=== PATIENT | male | born 1985 | race African-American/Black ===

== ENCOUNTER 2017-02-16 02:59 | Emergency (ER) | payer SELFPAY ==
[~2017-02-16 02:59] MED LIST: SERO25TA PO; VALP250C PO; VALP250UDC PO
[2017-02-16] MEDS ORDERED: TYLE325T PO (03:06)
[2017-02-16 03:08] VITALS: BP 153/99; PULSE 86; RESP 20; TEMP 98; O2SAT 94
[2017-02-16] MEDS ORDERED: ALBU.5I NEB (03:13)
[2017-02-16 03:41] VITALS: BP 135/85; PULSE 78; RESP 20; TEMP 98; O2SAT 94
[2017-02-16] MEDS ORDERED: KETOROLAC TROMETHAMINE 60 MG/2 ML (IM) VIAL IM ONE (04:00)
[2017-02-16] MEDS ORDERED: RESP: ALBUTEROL 2.5 MG/IPRATROPIUM 0.5 MG NEB (SCH) NEB ONE (04:00)
[2017-02-16 04:03] VITALS: O2SAT 97
[2017-02-16 04:15] VITALS: BP 136/83; PULSE 78; RESP 18; O2SAT 96
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
[2017-02-16 05:59] VITALS: BP 152/76
--- NOTE | 2017-02-16 12:15 | EKG ---
Date Performed: 02/16/2017 Time Performed: 03:52:15 PTAGE: 32 years EKG: Sinus rhythm LEFT VENTRICULAR HYPERTROPHY AND ST-T CHANGE Early repolarization, consider percarditis ABNORMAL ECG PREVIOUS TRACING : 09/07/2004 05.01 DOCTOR: Gary Tsai Interpretating Date/Time 02/16/2017 12:13:56
== END 2017-02-16 06:10 | disposition home or self-care (01) ==
LOC: NEPD 02:59 → NEPC 06:10
DX: M54.9 Dorsalgia, unspecified (principal); J45.909 Unspecified asthma, uncomplicated; I51.7 Cardiomegaly; R94.31 Abnormal electrocardiogram [ECG] [EKG]; R62.50 Unspecified lack of expected normal physiological development in childhood; F41.9 Anxiety disorder, unspecified; E11.9 Type 2 diabetes mellitus without complications; I10 Essential (primary) hypertension; R56.9 Unspecified convulsions
CPT/HCPCS: 93005; 94664; 96372; 99284; J1885

== ENCOUNTER 2017-03-16 03:24 | Inpatient (IN) | payer SELFPAY ==
[2017-03-16] VITALS (11 sets, daily range): BP systolic 124–149; BP diastolic 71–88; PULSE 61–78; RESP 14–22; TEMP 97.3–98.7; O2SAT 96–100
[~2017-03-16] VITALS: Ht 182.9 cm; Wt 117.0 kg
[~2017-03-16 03:24] MED LIST changes: +ALBU.5I NEB; -SERO25TA PO; +TYLE325T PO; -VALP250C PO; -VALP250UDC PO
[2017-03-16] MEDS ORDERED: SODIUM CHLOR 0.9% 1000 ML INJ 1,000 ML IV SCH ×2 (03:45→06:15)
[2017-03-16] MEDS ORDERED: ASPIRIN 81 MG CHEW TAB PO ONE (03:45)
[2017-03-16] MEDS ORDERED: SODIUM CHLORIDE 0.9% FLUSH 10 ML FLUSH IVF PRN (03:45)
[2017-03-16] MEDS ORDERED: NITROGLYCERIN 0.4 MG SL 25 TABS/BTL SL ONE (03:45)
[2017-03-16 04:02] LABS: AUTOMATED NEUTROPHIL # 4.1 TH/MM3 (1.8-7.7); BASOPHIL # 0.1 TH/MM3 (0-0.2); BASOPHIL % 0.7 % (0.0-2.0); EOSINOPHIL # 0.4 TH/MM3 (0-0.4); EOSINOPHIL % 5.7 % (0.0-4.0); HEMATOCRIT 47.4 % (39.0-51.0); HEMO FLAGS DIFF FINAL; LYMPHOCYTE # 1.8 TH/MM3 (1.0-4.8); MEAN CORPUSCULAR HEMOGLOBIN 28.4 PG (27.0-34.0); MEAN CORPUSCULAR HGB CONC 32.6 % (32.0-36.0); MONO % 8.5 % (0.0-8.0); NEUT % 59.1 % (16.0-70.0); PLATELET COUNT 245 TH/MM3 (150-450); RED BLOOD COUNT 5.45 MIL/MM3 (4.50-5.90); RED CELL DISTRIBUTION WIDTH 13.6 % (11.6-17.2); WHITE BLOOD COUNT 6.9 TH/MM3 (4.0-11.0)
[2017-03-16 04:20] LABS: APTT (PATIENT) 27.6 SEC (24.3-30.1); PROTHROMBIN TIME - PATIENT 10.2 SEC (9.8-11.6)
--- NOTE | 2017-03-16 04:23 | RADRPT ---
EXAM DATE/TIME: 03/16/2017 03:54 [facility] COMPARISON: CHEST SINGLE AP, April 01, 2010, 10:39. INDICATIONS : Chest pain. MEDICAL HISTORY : Unobtainable. SURGICAL HISTORY : Unobtainable. ENCOUNTER: Initial ACUITY: 2 days PAIN SCORE: 10/10 LOCATION: Bilateral chest FINDINGS: Portable AP view of the chest demonstrates a normal-sized cardiac silhouette. No effusion, consolidat ion, or pneumothorax is visualized. The bones and soft tissues demonstrate no acute abnormality. Lung s are underinflated. MOLD BREAKER shunt overlies the right chest. CONCLUSION: No acute cardiopulmonary abnormality is identified. Erick Reveles MD on March 16, 2017 at 4:21 Board Certified Radiologist. This report was verified electronically.
[2017-03-16 04:24] LABS: ANION GAP 6 MEQ/L (5-15); BICARBONATE 29.5 MEQ/L (21.0-32.0); BLOOD UREA NITROGEN 14 MG/DL (7-18); CHLORIDE 103 MEQ/L (98-107); GLOMERULAR FILTRATION RATE 87 ML/MIN (>89); MAGNESIUM 2.3 MG/DL (1.5-2.5); POTASSIUM 3.5 MEQ/L (3.5-5.1); SODIUM (NA) 138 MEQ/L (136-145)
[2017-03-16] MEDS ORDERED: KETOROLAC TROMETHAMINE 30 MG/ML (IVP) VIAL IV PUSH ONE (04:30)
[2017-03-16 04:37] LABS: CREATINE KINASE 1153 U/L (39-308)
[2017-03-16 04:50] LABS: CKMB 6.4 NG/ML (0.5-3.6)
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
--- NOTE | 2017-03-16 06:04 | RADRPT ---
EXAM DATE/TIME: 03/16/2017 05:52 [facility] COMPARISON: CT BRAIN W/O CONTRAST, June 20, 2015, 10:02. INDICATIONS : Dizziness. RADIATION DOSE: 41.74 CTDIvol (mGy) MEDICAL HISTORY : Hypertension. SURGICAL HISTORY : Shunt. ENCOUNTER: Initial ACUITY: 2 days PAIN SCALE: 0/10 LOCATION: cranial TECHNIQUE: Multiple contiguous axial images were obtained of the head. Using automated exposure control and adj ustment of the mA and/or kV according to patient size, radiation dose was kept as low as reasonably a chievable to obtain optimal diagnostic quality images. DICOM format image data is available electro nically for review and comparison. FINDINGS: CEREBRUM: Right frontal SUPERVISOR LOCOMOTIVE shunt is present with distal tip in the right frontal horn. Ventricles are stable in size. There is mild expected dilatation of the left lateral ventricle secondary to the left-sided en cephalomalacia involving the frontal, parietal, and temporal lobes. No midline shift, mass lesion, h emorrhage or acute infarction. No extra-axial fluid collections are seen. POSTERIOR FOSSA: The cerebellum and brainstem are intact. The 4th ventricle is midline. The cerebellopontine angle i s unremarkable. EXTRACRANIAL: Sinuses demonstrate no acute finding. There is a left maxillary mucous retention cyst measuring 18 mm . SKULL: The calvaria is intact. No evidence of skull fracture. CONCLUSION: 1. Stable noncontrast head CT. No acute intracranial abnormality is identified. 2. Right frontal SUPERVISOR LOCOMOTIVE shunt is in unchanged position and ventricles are stable in size. 3. 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 Erick Reveles MD on March 16, 2017 at 5:59 Board Certified Radiologist. This report was verified electronically.
[2017-03-16] MEDS: SODIUM CHLOR 0.9% 1000 ML INJ 1,000 ML IV SCH (06:40)
[2017-03-16] MEDS ORDERED: MAGNESIUM HYDROXIDE SUSP 30 ML CUP PO PRN (06:45)
[2017-03-16] MEDS ORDERED: SODIUM CHLORIDE 0.9% FLUSH 10 ML FLUSH IV FLUSH PRN (06:45)
[2017-03-16] MEDS ORDERED: LACTULOSE SYRUP 20 GM/30 ML CUP PO PRN (06:45)
[2017-03-16] MEDS ORDERED: MORPHINE SULFATE 4 MG/ML INJ IV PUSH PRN (06:45)
[2017-03-16] MEDS ORDERED: BISACODYL 10 MG SUPP RECTAL PRN (06:45)
[2017-03-16] MEDS ORDERED: SENNOSIDES 8.6 MG TAB PO PRN (06:45)
[2017-03-16] MEDS ORDERED: ACETAMINOPHEN 325 MG TAB PO PRN (06:45)
[2017-03-16] MEDS ORDERED: ONDANSETRON HCL 4 MG/2 ML VIAL IVP PRN (06:45)
[2017-03-16] MEDS: SODIUM CHLORIDE 0.9% FLUSH 10 ML FLUSH IV FLUSH SCH ×2 (09:00→21:00)
[2017-03-16] MEDS: DOCUSATE SODIUM 50 MG/SENNA 8.6 MG TAB PO SCH ×2 (09:00→23:18)
--- NOTE | 2017-03-16 10:29 | HHI.HP ---
[facility] No Primary Care Physician Admission Diagnosis chest wall pain; elevated ck r/o rhabdomyolysis Diagnoses: (1) Atypical chest pain Diagnosis: Principal (2) Tobacco abuse Diagnosis: Secondary Chief Complaint: Chest pain Travel History International Travel<30 Days: No Contact w/Intl Traveler <30 Da: No Traveled to Known Affected Are: No History of Present Illness Written by Wilder Mckenna, acting as scribe for Dr. Conteh on 03/16/17 at 10:53. 32-year-old male with a PMH of TBI, PAPER LATCHER shunt in place, mental retardation, seizure disorder, DM, asthma, tobacco and marijuana use. He presented to the ED via [facility] with complaints of chest pain. He states that the chest pain began two days ago, rates pain 10/10, agrees to pain being crushing, stabbing and burning, pain is constant, nonradiating. He denies diaphoresis, but endorses nausea with no vomiting yesterday. He denies any recent injury or trauma. He reports cough but unsure if it is productive, denies leg swelling, or SOB. Patient reports a history of seizures, but he has not been taking any of his medications, he is unaware of what pharmacy he uses. He repots being on Singular and Depakote, unsure of dose. His last reported seizure was "years ago ". At the moment there is no family present patient states that he lives at home with mother and his mother does not know he is in the hospital. An attempt was made to contact next of kin listed on EMR, however number was not correct. He does not have anyone else listed in chart to contact. Exam and history was limited due to patients past medical history of TBI and mental retardation. History was gathered from ER documentation, and past [facility] visits. Review of Systems Except as stated in HPI: all other systems reviewed are Neg Past Family Social History Past Medical History Limited due to patients mental capacity, gathered from patient and past [facility] visits Asthma TBI with PAPER LATCHER shunt in place Mental retardation Seizures Past Surgical History Limited due to patients mental capacity, gathered from patient and past [facility] visits PAPER LATCHER shunt after TBI ?left shoulder surgery ?abdominal surgery Reported Medications Reported Meds & Active Scripts Active Reported Albuterol Neb (Albuterol Sulfate) 2.5 Mg/0.5 Ml Neb 2.5 Mg NEB Q4HR NEB PRN Note: The Albuterol Sulfate Inhalation Solution is concentrated and must be diluted. Read complete instructions carefully before using. Tylenol (Acetaminophen) 325 Mg Tab 650 Mg PO Q4H PRN Allergies: Coded Allergies: penicillin G (Verified Allergy, Severe, 03/16/17) PT DID NOT MENTION ALLERGY TO PCN WHEN ASKED risperidone (Verified Allergy, Unknown, JUST DON'T LIKE IT; TASTES NASTY, 03/16/17) Active Ordered Medications Inpatient Medications Acetaminophen (Tylenol) 650 mg Q6H PRN PO PAIN SCALE 1 TO 2; Start 03/16/17 at 06:45 Acetaminophen/ Hydrocodone Bitart ([place] 5-325 Mg) 1 tab Q4H PRN PO PAIN SCALE 3 TO 5; Start 03/16/17 at 06:45 Aspirin (Aspirin Chew) 162 mg ONCE ONCE PO Last administered on 03/16/17 04: 05; Start 03/16/17 at 03:45; Stop 03/16/17 at 03:46; Status DC Bisacodyl (Dulcolax Supp) 10 mg DAILY PRN RECTAL SEVERE CONSITIPATION; Start 03/16/17 at 06:45 Ketorolac Tromethamine (Toradol Inj) 30 mg ONCE ONCE IV PUSH Last administered on 03/16/17 05:00; Start 03/16/17 at 04:30; Stop 03/16/17 at 04:31 ; Status DC Lactulose (Lactulose Liq) 30 ml DAILY PRN PO SEVERE CONSITIPATION; Start at 06:45 Magnesium Hydroxide (Milk Of Magnesia Liq) 30 ml Q12H PRN PO Mild constipation ; Start 03/16/17 at 06:45 Morphine Sulfate (Morphine Inj) 2 mg Q3H PRN IV PUSH PAIN 6-10; Start 03/16/17 at 06:45 Nitroglycerin (Nitrostat Sl) 0.4 mg ONCE ONCE SL Last administered on 04:05; Start 03/16/17 at 03:45; Stop 03/16/17 at 03:46; Status DC Ondansetron HCl (Zofran Inj) 4 mg Q6H PRN IVP NAUSEA OR VOMITING; Start at 06:45 Senna/Docusate Sodium (Geeta-Colace) 1 tab BID PO ; Start 03/16/17 at 09:00 Sennosides (Senokot) 17.2 mg Q12H PRN PO Moderate constipation; Start 03/16/17 at 06:45 Sodium Chloride (NS Flush) 2 ml BID IV FLUSH ; Start 03/16/17 at 09:00 Family History Mother: no history reported Father: , cancer unknown what kind Social History Lives with mother Tobacco use: smokes 1/2 PPD (per ED documentation) Alcohol use: denies any Illicit drug use: Marijuana, does not quantify amount Physical Exam Vital Signs Vital Signs Date Time Temp Pulse Resp B/P (MAP) Pulse Ox O2 Delivery O2 Flow Rate FiO2 03/16/17 07:58 97.3 64 18 147/71 (96) 100 03/16/17 07:44 03/16/17 06:52 78 14 133/88 (103) 99 Room Air 03/16/17 05:45 62 14 144/78 (100) 98 Room Air 03/16/17 04:30 64 14 140/82 (101) 99 Room Air 03/16/17 03:34 98.7 66 16 149/88 (108) 96 Room Air Physical Exam GENERAL: This is a well-nourished, -[place] male well-developed patient , in no apparent distress. SKIN: No rashes, ecchymoses or lesions. Cool and dry. HEAD: Atraumatic. Normocephalic. EYES: Pupils equal round and reactive. Extraocular motions intact. No scleral icterus. No injection or drainage. ENT: Nose without bleeding, purulent drainage or septal hematoma. Throat without erythema, tonsillar hypertrophy or exudate. Uvula midline. Airway patent. NECK: Trachea midline. No JVD or lymphadenopathy. CARDIOVASCULAR: Regular rate and rhythm without murmurs, gallops, or rubs. RESPIRATORY: Clear to auscultation. Breath sounds equal bilaterally. No wheezes , rales, or rhonchi. GASTROINTESTINAL: Abdomen soft, non-tender, nondistended. Visible abdominal scar. MUSCULOSKELETAL: Extremities without clubbing, cyanosis, or edema. No joint tenderness, effusion, or edema noted. Visible left shoulder scar. NEUROLOGICAL: Awake and alert. Motor and sensory grossly within normal limits. Speech is slow. Laboratory Laboratory Tests Test 03/16/17 03:45 White Blood Count 6.9 Red Blood Count 5.45 Hemoglobin 15.4 Hematocrit 47.4 Mean Corpuscular Volume 87.0 Mean Corpuscular Hemoglobin 28.4 Mean Corpuscular Hemoglobin Concent 32.6 Red Cell Distribution Width 13.6 Platelet Count 245 Mean Platelet Volume 8.0 Neutrophils (%) (Auto) 59.1 Lymphocytes (%) (Auto) 26.0 Monocytes (%) (Auto) 8.5 Eosinophils (%) (Auto) 5.7 Basophils (%) (Auto) 0.7 Neutrophils # (Auto) 4.1 Lymphocytes # (Auto) 1.8 Monocytes # (Auto) 0.6 Eosinophils # (Auto) 0.4 Basophils # (Auto) 0.1 CBC Comment DIFF FINAL Differential Comment Prothrombin Time 10.2 Prothromb Time International Ratio 1.0 Activated Partial Thromboplast Time 27.6 Blood Urea Nitrogen 14 Creatinine 1.17 Random Glucose 82 Calcium Level 9.1 Magnesium Level 2.3 Sodium Level 138 Potassium Level 3.5 Chloride Level 103 Carbon Dioxide Level 29.5 Anion Gap 6 Estimat Glomerular Filtration Rate 87 Total Creatine Kinase 1153 Creatine Kinase MB 6.4 Creatine Kinase MB % 0.6 Troponin I LESS THAN 0.02 Result Diagram: 03/16/1734403/16/17344 Imaging Last Impressions Chest X-Ray 03/16/17341 Signed Impressions: Service Date/Time: Thursday, March 16, 2017 03:54 - CONCLUSION: No acute cardiopulmonary abnormality is identified. Erick Reveles MD Head CT 03/16/17 0000 Signed Impressions: Service Date/Time: Thursday, March 16, 2017 05:52 - CONCLUSION: 1. Stable noncontrast head CT. No acute intracranial abnormality is identified. 2. Right frontal PAPER LATCHER shunt is in unchanged position and ventricles are stable in size. 3. 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 MD Geronimo Zarco VTE Risk Assessment Geronimo VTE Risk Assessment: No/Low Risk (score <= 1) Caprini Risk Assessment Model Point Value = 1 Point Value = 2 Point Value = 3 Point Value = 5 Age 41-60 Minor surgery BMI > 25 kg/m2 Swollen legs Varicose veins or History of unexplained or recurrent spontaneous Oral contraceptives or hormone replacement Sepsis (< 1 month) Serious lung disease, including pneumonia (< 1 month) Abnormal pulmonary function Acute myocardial infarction Congestive heart failure (< 1 month) History of inflammatory bowel disease Medical patient at bed rest Age 61-74 Arthroscopic surgery Major open surgery (> 45 min) Laparoscopic surgery (> 45 min) Malignancy Confined to bed (> 72 hours) Immobilizing plaster cast Central venous access Age >= 75 History of VTE Family history of VTE Factor V Leiden Prothrombin [id number] Lupus anticoagulant Anticardiolipin antibodies Elevated serum homocysteine Heparin-induced thrombocytopenia Other congenital or acquired thrombophilia Stroke (< 1 month) Elective arthroplasty Hip, pelvis, or leg fracture Acute spinal cord injury (< 1 month) Prophylaxis Regimen Total Risk Factor Score Risk Level Prophylaxis Regimen 0-1 Low Early ambulation 2 Moderate Order ONE of the following: *Sequential Compression Device (SCD) *Heparin 5000 units SQ BID 3-4 Higher Order ONE of the following medications: *Heparin 5000 units SQ TID *Enoxaparin/Lovenox 40 mg SQ daily (WT < 150 kg, CrCl > 30 mL/min) *Enoxaparin/Lovenox 30 mg SQ daily (WT < 150 kg, CrCl > 10-29 mL/min) *Enoxaparin/Lovenox 30 mg SQ BID (WT < 150 kg, CrCl > 30 mL/min) AND/OR *Sequential Compression Device (SCD) 5 or more Highest Order ONE of the following medications: *Heparin 5000 units SQ TID (Preferred with Epidurals) *Enoxaparin/Lovenox 40 mg SQ daily (WT < 150 kg, CrCl > 30 mL/min) *Enoxaparin/Lovenox 30 mg SQ daily (WT < 150 kg, CrCl > 10-29 mL/min) *Enoxaparin/Lovenox 30 mg SQ BID (WT < 150 kg, CrCl > 30 mL/min) AND *Sequential Compression Device (SCD) Assessment and Plan Problem List: (1) Atypical chest pain ICD Code: R07.89 - Other chest pain (2) Tobacco abuse ICD Code: Z72.0 - Tobacco use Assessment and Plan 32-year-old male with a PMH of TBI, PAPER LATCHER shunt in place, mental retardation, seizure disorder, DM, asthma, tobacco and marijuana use. He presented to the ED via [facility] with complaints of chest pain. He states that the chest pain began two days ago, rates pain 10/10, agrees to pain being crushing, stabbing and burning, pain is constant, nonradiating. Atypical chest pain rule out ACS - Chest pain x2 days, first set of troponin <0.02, Ck-MC 6.4, total CK 1153, pending second set now - Initial EKG showing sinus bradycardia with occasional supraventricular premature complexes, left ventricular hypertrophy and ST-T changes. - Continue following serial troponin, recheck EKG to monitor for changes - If second troponin negative patient will undergo Irina scan - Toxicology screen ordered, patient has been positive in the past for cocaine on screen - IV Morphine PRN for pain. Seizure, none at the moment none recently reported - Patient unaware of the dose of his Depakote, has not been taking them for an unknown length of time - Seizure precautions for the moment, will consider resuming when an updated list of medications is brought in by family Asthma, not in exacerbation - Monitor for the moment, consider adding nebulizer treatments if needed - Oxygen saturation in the high 90's to 100 on room air. Tobacco and marijuana use - Counseled on cessation. TBI/mental retardation - supportive care for the moment, as this is chronic VTE - Low risk, SCD's and FATOU consueloe. This note was transcribed by kieran Mckenna. I, Dr. Gadiel Conteh personally performed the history, physical exam, and medical decision making; and confirmed the accuracy of the information in the transcribed note. Authenticated by Dr. Gadiel Conteh on 03/16/17 at 10:53. Code Status Full code Discussed Condition With Patient BalaInezjose SOLIMAN Mar 16, 2017 10:29 Gadiel Conteh MD Mar 16, 2017 10:30
[2017-03-16 11:22] LABS: CREATINE KINASE 775 U/L (39-308)
[2017-03-16] MEDS ORDERED: REGADENOSON INJ 0.4 MG/5 ML SYR ONE (12:55)
--- NOTE | 2017-03-16 14:10 | RADRPT ---
EXAM DATE/TIME: 03/16/2017 12:37 [place] COMPARISON: No previous studies available for comparison. INDICATIONS : Chest pain. Angina. DOSE: 30.2 mCi Tc99m Myoview at stress. 9.9 mCi Tc99m Myoview at rest. 0.4 mg Lexiscan STRESS SYMPTOMS: None noted. EJECTION FRACTION: 59% MEDICAL HISTORY : Hypertension. Diabetes mellitus type 2. Smoker. Asthma. SURGICAL HISTORY : None. ENCOUNTER: Initial ACUITY: 1 day PAIN SCALE: 4/10 LOCATION: chest TECHNIQUE: The patient underwent pharmacologic stress with infusion of prescribed dose. Continuous ECG tracing was monitored during stress. Gated SPECT imaging was performed after stress and conventional SPECT i maging was performed at rest. The examination was performed on a SPECT/CT scanner, both attenuation and non-corrected datasets were reviewed. FINDINGS: DISTRIBUTION: The maximum perfused segment at stress is in the lateral wall. PERFUSION STUDY: There is focal perfusion defect at stress in the anterior wall and to lesser degree in the mid inferi or wall. There is also overall mild chamber enlargement during stress. GATED STUDY: There is intact wall motion and thickening without hypokinetic or dyskinetic segments. CONCLUSION: 1. Mild stress-induced chamber enlargement concerning for triple vessel disease. 2. Focal ischemia in the anterior wall and less prominently in the mid inferior wall. 3. No focal wall motion abnormality with decreased ejection fraction of 59%. RISK CATEGORY: High (>3% Annual Mortality Rate) Nelson Thapa MD on March 16, 2017 at 14:03 Board Certified Radiologist. This report was verified electronically.
[2017-03-16] MEDS ORDERED: NITROGLYCERIN 0.4 MG SL 25 TABS/BTL SL PRN (14:45)
[2017-03-16] MEDS ORDERED: DEXTROSE 50% IN WATER 50 ML VIAL(D50) IV PUSH PRN (14:45)
[2017-03-16] MEDS ORDERED: GLUCAGON 1 MG/ML VIAL OTHER PRN (14:45)
--- NOTE | 2017-03-16 15:13 | HHI.PR ---
Addendum Remarks Add to A&P from today. Unstable angina - Nuclear stress test results showing Mild Stress-induced chamber enlargement concerning for triple vessel disease. Focal ischemia in the anterior wall less prominently in the mild inferior wall. No focal wall motion abnormality with decreased ejection fraction on 59%. - Start Heparin gtt, with loading dose. - Troponin X2 less than 0.02, total CK trending down - Patient with chest pain relieved with IV Morphine - Nitro patch scheduled. - Cardiology consult placed for evaluation - Diet: heart healthy, accu-checks for glycemic control - Check hemoglobin A1C, check lipid panel - Start PO statin. Start BB if UDS is negative for cocaine. - Admit to inpatient - Consult has been placed for case management to assist with locating family for possible cardiac intervention. Discussed with Dr. Conthe. Wilder Mckenna Mar 16, 2017 15:13
[2017-03-16] MEDS ORDERED: HEPARIN SODIUM - IV 10,000 UNITS/10 ML VIAL IV PUSH ONE (15:15)
[2017-03-16] MEDS ORDERED: HEPARIN-D5W 25,000 U/250 ML 250 ML IV PRN (15:30)
[2017-03-16] MEDS: NITROGLYCERIN 2% OINT 1 GM PACKET TOPICAL SCH ×2 (16:03→23:18)
--- NOTE | 2017-03-16 16:24 | PD.CONS ---
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 He presented to the ED via [facility] with complaints of chest pain. He states that the chest pain began two days ago, rates pain 10/10, agrees to pain being crushing, stabbing and burning, pain is constant, nonradiating. He denies diaphoresis, but endorses nausea with no vomiting yesterday. He denies any recent injury or trauma. He reports cough but unsure if it is productive, denies leg swelling, or SOB. Patient reports a history of seizures, but he has not been taking any of his medications, he is unaware of what pharmacy he uses. He repots being on Singular and Depakote, unsure of dose. Negative troponin. MPI concerning for 3 vessel CAD. Cardiology consulted for further management and evaluation. Review of Systems Consitutional: DENIES: Fatigue, Fever, Chills, Weight gain, Weight loss Eyes: DENIES: Amaurosis Fugax, Change in vision HEENT: DENIES: Lightheadedness, Change in hearing Respiratory: DENIES: See HPI, Cough, Snoring, Shortness of breath, Wheezing, Sputum production Cardiovascular: COMPLAINS OF: See HPI Gastrointestinal: DENIES: Nausea, Vomiting, Change in bowel habits, Reflux, Bloody stools, Melena Genitourinary: DENIES: Urinary incontinence, Difficulty voiding Integumentary: DENIES: Rash Neurologic: DENIES: Tingling or numbness, Memory problems, Poor Balance, Stroke symptoms Musculoskeletal: DENIES: Joint pain, Muscle pain, Limited range of motion, Back pain Psychiatric: DENIES: Anxiety, Depression, Sleep disturbances Hematologic: DENIES: Bruising tendencies, Bleeding tendencies Endocrine: DENIES: Weight gain, Weight loss, Thyroid disease Past Family Social History Allergies: Coded Allergies: penicillin G (Verified Allergy, Severe, 03/16/17) PT DID NOT MENTION ALLERGY TO PCN WHEN ASKED risperidone (Verified Allergy, Unknown, JUST DON'T LIKE IT; TASTES NASTY, 03/16/17) Past Medical History Limited due to patients mental capacity, gathered from patient and past [facility] visits Asthma TBI with PRIVATE INQUIRY AGENT shunt in place Mental retardation Seizures Past Surgical History Limited due to patients mental capacity, gathered from patient and past [facility] visits PRIVATE IN[employer]IRY AGENT shunt after TBI ?left shoulder surgery ?abdominal surgery Reported Medications Reported Meds & Active Scripts Active Reported Albuterol Neb (Albuterol Sulfate) 2.5 Mg/0.5 Ml Neb 2.5 Mg NEB Q4HR NEB PRN Note: The Albuterol Sulfate Inhalation Solution is concentrated and must be diluted. Read complete instructions carefully before using. Tylenol (Acetaminophen) 325 Mg Tab 650 Mg PO Q4H PRN Active Ordered Medications Current Medications Medications (Trade) Dose Ordered Sig/Hattie Route Start Time Stop Time Status Last Admin Sodium Chloride 1,000 ml @ 150 mls/hr Q6H40M IV 03/16/17 06:40 (NS Flush) 2 ml UNSCH PRN IV FLUSH 03/16/17 06:45 (NS Flush) 2 ml BID IV FLUSH 03/16/17 09:00 (Zofran Inj) 4 mg Q6H PRN IVP 03/16/17 06:45 03/16/17 11:04 (Tylenol) 650 mg Q6H PRN PO 03/16/17 06:45 ([place] 5-325 Mg) 1 tab Q4H PRN PO 03/16/17 06:45 (Morphine Inj) 2 mg Q3H PRN IV PUSH 03/16/17 06:45 03/16/17 11:05 (Geeta-Colace) 1 tab BID PO 03/16/17 09:00 (Milk Of Magnesia Liq) 30 ml Q12H PRN PO 03/16/17 06:45 (Senokot) 17.2 mg Q12H PRN PO 03/16/17 06:45 (Dulcolax Supp) 10 mg DAILY PRN RECTAL 03/16/17 06:45 (Lactulose Liq) 30 ml DAILY PRN PO 03/16/17 06:45 (D50w (Vial) Inj) 50 ml UNSCH PRN IV PUSH 03/16/17 14:45 (Glucagon Inj) 1 mg UNSCH PRN OTHER 03/16/17 14:45 (NovoLOG SUPPLEMENTAL SCALE) 1 ACHS SLIDING SCALE SQ 03/16/17 17:00 (Heparin Inj) 5,000 units UNSCH PRN IV PUSH 03/16/17 20:45 (Heparin Inj) 2,500 units UNSCH PRN IV PUSH 03/16/17 20:45 Heparin Sodium/ Dextrose 250 ml @ 10 mls/hr TITRATE PRN IV 03/16/17 15:30 (Lipitor) 40 mg HS PO 03/16/17 21:00 (Nitroglycerin 2% Oint) 1 inch Q6H TOPICAL 03/16/17 15:00 03/16/17 16:03 (Lopressor) 25 mg Q12HR PO 03/16/17 21:00 Physical Exam Vital Signs Vital Signs Date Time Temp Pulse Resp B/P (MAP) Pulse Ox O2 Delivery O2 Flow Rate FiO2 03/16/17 14:08 97.6 71 22 134/74 (94) 96 03/16/17 12:00 72 03/16/17 08:25 61 03/16/17 07:58 97.3 64 18 147/71 (96) 100 03/16/17 07:44 03/16/17 06:52 78 14 133/88 (103) 99 Room Air 03/16/17 05:45 62 14 144/78 (100) 98 Room Air 03/16/17 04:30 64 14 140/82 (101) 99 Room Air 03/16/17 03:34 98.7 66 16 149/88 (108) 96 Room Air Physical Exam GENERAL: Well-nourished, well-developed patient. SKIN: Warm and dry. HEAD: Normocephalic. EYES: No scleral icterus. No injection or drainage. NECK: Supple, trachea midline. No JVD or lymphadenopathy. CARDIOVASCULAR: Regular rate and rhythm without murmurs, gallops, or rubs. RESPIRATORY: Breath sounds equal bilaterally. No accessory muscle use. GASTROINTESTINAL: Abdomen soft, non-tender, nondistended. EXTREMITIES: No cyanosis, or edema. NEUROLOGICAL: Awake, alert, and oriented x 3. Non-focal. Laboratory Laboratory Tests Test 03/16/17 03:45 03/16/17 10:40 White Blood Count 6.9 Red Blood Count 5.45 Hemoglobin 15.4 Hematocrit 47.4 Mean Corpuscular Volume 87.0 Mean Corpuscular Hemoglobin 28.4 Mean Corpuscular Hemoglobin Concent 32.6 Red Cell Distribution Width 13.6 Platelet Count 245 Mean Platelet Volume 8.0 Neutrophils (%) (Auto) 59.1 Lymphocytes (%) (Auto) 26.0 Monocytes (%) (Auto) 8.5 Eosinophils (%) (Auto) 5.7 Basophils (%) (Auto) 0.7 Neutrophils # (Auto) 4.1 Lymphocytes # (Auto) 1.8 Monocytes # (Auto) 0.6 Eosinophils # (Auto) 0.4 Basophils # (Auto) 0.1 CBC Comment DIFF FINAL Differential Comment Prothrombin Time 10.2 Prothromb Time International Ratio 1.0 Activated Partial Thromboplast Time 27.6 Blood Urea Nitrogen 14 Creatinine 1.17 Random Glucose 82 Calcium Level 9.1 Magnesium Level 2.3 Sodium Level 138 Potassium Level 3.5 Chloride Level 103 Carbon Dioxide Level 29.5 Anion Gap 6 Estimat Glomerular Filtration Rate 87 Total Creatine Kinase 1153 775 Creatine Kinase MB 6.4 5.0 Creatine Kinase MB % 0.6 0.6 Troponin I LESS THAN 0.02 LESS THAN 0.02 Result Diagram: 03/16/1734403/16/17344 Imaging Last Impressions Chest X-Ray 03/16/17341 Signed Impressions: Service Date/Time: Thursday, March 16, 2017 03:54 - CONCLUSION: No acute cardiopulmonary abnormality is identified. Erick Reveles MD Myocardial Perfusion Scan Nuc Med 03/16/17 0000 Signed Impressions: Service Date/Time: Thursday, March 16, 2017 12:37 - CONCLUSION: 1. Mild stress-induced chamber enlargement concerning for triple vessel disease. 2. Focal ischemia in the anterior wall and less prominently in the mid inferior wall. 3. No focal wall motion abnormality with decreased ejection fraction of 59%%. RISK CATEGORY: High (>3%% Annual Mortality Rate) Nelson Thapa MD Head CT 03/16/17 0000 Signed Impressions: Service Date/Time: Thursday, March 16, 2017 05:52 - CONCLUSION: 1. Stable noncontrast head CT. No acute intracranial abnormality is identified. 2. Right frontal PR[employer] shunt is in unchanged position and ventricles are stable in size. 3. 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 Erick Reveles MD Assessment and Plan Problem List: (1) Atypical chest pain ICD Codes: R07.89 - Other chest pain Plan: 32 y/o M with atypical chest pain and high risk stress test. Currently chest pain free with No CV complaints. Reasonable to perform LHC to risk stratify CAD. Risk benefits of LHC +/- PCI explained to Mr. Porras, however HE DECLINES, he states he wants to go home. Of note for the MPI he consented for the test, thus I am assuming he is competent to make his own decision. Recommendations: 1. Continue aggressive management to CAD 2. Consult Case Management/Social Work Thank you for the opportunity to participate in the care of this patient Will be available on a PRN basis for any questions or concerns (2) Tobacco abuse ICD Codes: Z72.0 - Tobacco use Praful Randle MD Mar 16, 2017 16:24
[2017-03-16] MEDS: INSULIN ASPART SUPPLEMENTAL SCALE SQ SCH ×2 (17:00→21:00)
[2017-03-16 17:41] LABS: HEMATOCRIT 41.2 % (39.0-51.0); MEAN CELL VOLUME 87.5 FL (80.0-100.0); MEAN CORPUSCULAR HEMOGLOBIN 29.1 PG (27.0-34.0); MEAN CORPUSCULAR HGB CONC 33.3 % (32.0-36.0); PLATELET COUNT 179 TH/MM3 (150-450); RED BLOOD COUNT 4.71 MIL/MM3 (4.50-5.90); RED CELL DISTRIBUTION WIDTH 13.5 % (11.6-17.2); REVIEW FLAG FINAL; WHITE BLOOD COUNT 4.5 TH/MM3 (4.0-11.0)
[2017-03-16 17:59] LABS: APTT (PATIENT) 27.9 SEC (24.3-30.1); PROTHROMBIN TIME - PATIENT 10.1 SEC (9.8-11.6)
[2017-03-16 18:02] LABS: ALT (GPT) 29 U/L (12-78); AST (GOT) 23 U/L (15-37)
[2017-03-16 18:05] LABS: ALKALINE PHOSPHATASE 59 U/L (45-117); CREATINE KINASE 654 U/L (39-308); INDIRECT BILIRUBIN 0.4 MG/DL (0.0-0.8); TOTAL BILIRUBIN ADULT 0.5 MG/DL (0.2-1.0)
[2017-03-16] MEDS ORDERED: LORazepam 2 MG/ML VIAL IV PUSH PRN (19:30)
[2017-03-16] MEDS ORDERED: HEPARIN SODIUM - IV 10,000 UNITS/10 ML VIAL IV PUSH PRN ×2 (20:45)
[2017-03-16] MEDS: ACETAMINOPHEN/HYDROcodone 325 MG/5 MG TAB PO PRN ×2 (20:54→23:18)
[2017-03-16] MEDS: METOPROLOL TARTRATE 25 MG TAB PO SCH (21:00)
[2017-03-16] MEDS ORDERED: ATORVASTATIN 40 MG TAB PO SCH (21:00)
--- NOTE | 2017-03-16 22:17 | EKG ---
Date Performed: 03/16/2017 Time Performed: 03:32:43 PTAGE: 32 years EKG: SINUS BRADYCARDIA WITH OCCASIONAL SUPRAVENTRICULAR PREMATURE COMPLEXES LEFT VENTRICULAR HYP ERTROPHY AND ST-T CHANGE ABNORMAL ECG PREVIOUS TRACING : 02/16/2017 03.52 Compared to the previous tracing sinus bradycardia new DOCTOR: Portillo Jackson Interpretating Date/Time 03/16/2017 22:15:58
[2017-03-17] VITALS (17 sets, daily range): BP systolic 108–118; BP diastolic 56–83; PULSE 58–77; RESP 18–20; TEMP 97.8–98.2; O2SAT 96–98
[2017-03-17 03:38] LABS: AUTOMATED NEUTROPHIL # 1.9 TH/MM3 (1.8-7.7); BASOPHIL % 0.7 % (0.0-2.0); EOSINOPHIL # 0.4 TH/MM3 (0-0.4); EOSINOPHIL % 8.6 % (0.0-4.0); HEMATOCRIT 41.4 % (39.0-51.0); HEMO FLAGS DIFF FINAL; LYMPH % 36.5 % (9.0-44.0); LYMPHOCYTE # 1.5 TH/MM3 (1.0-4.8); MEAN CELL VOLUME 87.7 FL (80.0-100.0); MEAN CORPUSCULAR HEMOGLOBIN 28.9 PG (27.0-34.0); MONO % 9.4 % (0.0-8.0); NEUT % 44.8 % (16.0-70.0); PLATELET COUNT 183 TH/MM3 (150-450); RED BLOOD COUNT 4.72 MIL/MM3 (4.50-5.90); RED CELL DISTRIBUTION WIDTH 13.6 % (11.6-17.2); WHITE BLOOD COUNT 4.2 TH/MM3 (4.0-11.0)
[2017-03-17 03:48] LABS: APTT (PATIENT) 31.1 SEC (24.3-30.1)
[2017-03-17 03:59] LABS: ALT (GPT) 32 U/L (12-78); ANION GAP 5 MEQ/L (5-15); AST (GOT) 21 U/L (15-37); BICARBONATE 29.9 MEQ/L (21.0-32.0); BLOOD UREA NITROGEN 11 MG/DL (7-18); CHLORIDE 106 MEQ/L (98-107); GLOMERULAR FILTRATION RATE 109 ML/MIN (>89); POTASSIUM 3.9 MEQ/L (3.5-5.1); SODIUM (NA) 141 MEQ/L (136-145)
[2017-03-17 04:02] LABS: ALKALINE PHOSPHATASE 57 U/L (45-117); HDL CHOLESTEROL 40.2 MG/DL (40.0-60.0); LDL CHOLESTEROL 85 MG/DL (0-99); TOTAL BILIRUBIN ADULT 0.5 MG/DL (0.2-1.0)
[2017-03-17] MEDS: NITROGLYCERIN 2% OINT 1 GM PACKET TOPICAL SCH ×2 (05:04→09:00)
[2017-03-17] MEDS: SODIUM CHLOR 0.9% 1000 ML INJ 1,000 ML IV SCH ×2 (05:12→09:20)
[2017-03-17] MEDS: INSULIN ASPART SUPPLEMENTAL SCALE SQ SCH ×2 (08:00→12:00)
[2017-03-17] MEDS: DOCUSATE SODIUM 50 MG/SENNA 8.6 MG TAB PO SCH (09:00)
[2017-03-17] MEDS: METOPROLOL TARTRATE 25 MG TAB PO SCH (09:00)
[2017-03-17] MEDS: SODIUM CHLORIDE 0.9% FLUSH 10 ML FLUSH IV FLUSH SCH (09:00)
[2017-03-17 09:44] LABS: HEMOGLOBIN A1a 1.2 %; HEMOGLOBIN A1b 0.9 %; HEMOGLOBIN Ao 85.4 %; HEMOGLOBIN F 1.2 %; HEMOGLOBIN LA1C 1.9 %; HEMOGLOBIN P3 3.3 %
--- NOTE | 2017-03-17 09:53 | HHI.PR ---
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 He presented to the ED via [facility] with complaints of chest pain. He states that the chest pain began two days ago, rates pain 10/10, agrees to pain being crushing, stabbing and burning, pain is constant, nonradiating. He denies diaphoresis, but endorses nausea with no vomiting yesterday. He denies any recent injury or trauma. He reports cough but unsure if it is productive, denies leg swelling, or SOB. Patient reports a history of seizures, but he has not been taking any of his medications, he is unaware of what pharmacy he uses. He repots being on Singular and Depakote, unsure of dose. His last reported seizure was "years ago ". At the moment there is no family present patient states that he lives at home with mother and his mother does not know he is in the hospital. An attempt was made to contact next of kin listed on EMR, however number was not correct. He does not have anyone else listed in chart to contact. Exam and history was limited due to patients past medical history of TBI and mental retardation. History was gathered from ER documentation, and past [facility] visits. 11-4 patient refused cardiac cath urine drug screen positive for cocaine patient denies using cocaine if echo is stable will dc to home today no new complaints Objective Vitals Vital Signs Date Time Temp Pulse Resp B/P (MAP) Pulse Ox O2 Delivery O2 Flow Rate FiO2 03/17/17 06:00 65 03/17/17 05:00 60 03/17/17 04:59 98.2 64 20 108/56 (73) 96 03/17/17 04:00 58 03/17/17 03:00 58 03/17/17 02:00 62 03/17/17 01:00 65 03/17/17 00:00 62 03/16/17 23:00 61 03/16/17 22:00 98.2 61 22 124/84 (97) 96 03/16/17 22:00 72 03/16/17 16:10 73 03/16/17 14:08 97.6 71 22 134/74 (94) 96 03/16/17 12:00 72 I/O 12/3/03/16/17 03/16/17 03/17/17 03/17/17 03/17/17 07:00 15:00 23:00 07:00 15:00 23:00 Intake Total 225 ml 480 ml Output Total 475 ml Balance 225 ml 5 ml Intake Oral 480 ml IV Total 225 ml Output Urine Total 475 ml Result Diagram: 03/17/17 0327 03/17/17 0327 Other Results Laboratory Tests Test 03/16/17 03:45 03/16/17 10:40 03/16/17 17:09 03/16/17 21:00 White Blood Count 6.9 TH/MM3 4.5 TH/MM3 Red Blood Count 5.45 MIL/MM3 4.71 MIL/MM3 Hemoglobin 15.4 GM/DL 13.7 GM/DL Hematocrit 47.4 % 41.2 % Mean Corpuscular Volume 87.0 FL 87.5 FL Mean Corpuscular Hemoglobin 28.4 PG 29.1 PG Mean Corpuscular Hemoglobin Concent 32.6 % 33.3 % Red Cell Distribution Width 13.6 % 13.5 % Platelet Count 245 TH/MM3 179 TH/MM3 Mean Platelet Volume 8.0 FL 8.3 FL Neutrophils (%) (Auto) 59.1 % Lymphocytes (%) (Auto) 26.0 % Monocytes (%) (Auto) 8.5 % Eosinophils (%) (Auto) 5.7 % Basophils (%) (Auto) 0.7 % Neutrophils # (Auto) 4.1 TH/MM3 Lymphocytes # (Auto) 1.8 TH/MM3 Monocytes # (Auto) 0.6 TH/MM3 Eosinophils # (Auto) 0.4 TH/MM3 Basophils # (Auto) 0.1 TH/MM3 CBC Comment DIFF FINAL Differential Comment Prothrombin Time 10.2 SEC 10.1 SEC Prothromb Time International Ratio 1.0 RATIO 1.0 RATIO Activated Partial Thromboplast Time 27.6 SEC 27.9 SEC Blood Urea Nitrogen 14 MG/DL Creatinine 1.17 MG/DL Random Glucose 82 MG/DL Calcium Level 9.1 MG/DL Magnesium Level 2.3 MG/DL Sodium Level 138 MEQ/L Potassium Level 3.5 MEQ/L Chloride Level 103 MEQ/L Carbon Dioxide Level 29.5 MEQ/L Anion Gap 6 MEQ/L Estimat Glomerular Filtration Rate 87 ML/MIN Total Creatine Kinase 1153 U/L 775 U/L 654 U/L Creatine Kinase MB 6.4 NG/ML 5.0 NG/ML 4.0 NG/ML Creatine Kinase MB % 0.6 % 0.6 % 0.6 % Troponin I LESS THAN 0.02 NG/ML LESS THAN 0.02 NG/ML LESS THAN 0.02 NG/ML Total Bilirubin 0.5 MG/DL Direct Bilirubin 0.1 MG/DL Indirect Bilirubin 0.4 MG/DL Aspartate Amino Transf (AST/SGOT) 23 U/L Alanine Aminotransferase (ALT/SGPT) 29 U/L Alkaline Phosphatase 59 U/L Total Protein 6.9 GM/DL Albumin 3.2 GM/DL Urine Opiates Screen NEG Urine Barbiturates Screen NEG Urine Amphetamines Screen NEG Urine Benzodiazepines Screen NEG Urine Cocaine Screen POS Urine Cannabinoids Screen NEG Test 03/17/17 03:27 White Blood Count 4.2 TH/MM3 Red Blood Count 4.72 MIL/MM3 Hemoglobin 13.7 GM/DL Hematocrit 41.4 % Mean Corpuscular Volume 87.7 FL Mean Corpuscular Hemoglobin 28.9 PG Mean Corpuscular Hemoglobin Concent 33.0 % Red Cell Distribution Width 13.6 % Platelet Count 183 TH/MM3 Mean Platelet Volume 8.2 FL Neutrophils (%) (Auto) 44.8 % Lymphocytes (%) (Auto) 36.5 % Monocytes (%) (Auto) 9.4 % Eosinophils (%) (Auto) 8.6 % Basophils (%) (Auto) 0.7 % Neutrophils # (Auto) 1.9 TH/MM3 Lymphocytes # (Auto) 1.5 TH/MM3 Monocytes # (Auto) 0.4 TH/MM3 Eosinophils # (Auto) 0.4 TH/MM3 Basophils # (Auto) 0.0 TH/MM3 CBC Comment DIFF FINAL Differential Comment Activated Partial Thromboplast Time 31.1 SEC Blood Urea Nitrogen 11 MG/DL Creatinine 0.96 MG/DL Random Glucose 86 MG/DL Total Protein 6.8 GM/DL Albumin 3.4 GM/DL Calcium Level 8.7 MG/DL Alkaline Phosphatase 57 U/L Aspartate Amino Transf (AST/SGOT) 21 U/L Alanine Aminotransferase (ALT/SGPT) 32 U/L Total Bilirubin 0.5 MG/DL Sodium Level 141 MEQ/L Potassium Level 3.9 MEQ/L Chloride Level 106 MEQ/L Carbon Dioxide Level 29.9 MEQ/L Anion Gap 5 MEQ/L Estimat Glomerular Filtration Rate 109 ML/MIN Triglycerides Level 51 MG/DL Cholesterol Level 135 MG/DL LDL Cholesterol 85 MG/DL HDL Cholesterol 40.2 MG/DL Cholesterol/HDL Ratio 3.35 RATIO Imaging Last Impressions Chest X-Ray 03/16/17 0342 Signed Impressions: Service Date/Time: Thursday, March 16, 2017 03:54 - CONCLUSION: No acute cardiopulmonary abnormality is identified. Erick Reveles MD Myocardial Perfusion Scan Nuc Med 03/16/17 0000 Signed Impressions: Service Date/Time: Thursday, March 16, 2017 12:37 - CONCLUSION: 1. Mild stress-induced chamber enlargement concerning for triple vessel disease. 2. Focal ischemia in the anterior wall and less prominently in the mid inferior wall. 3. No focal wall motion abnormality with decreased ejection fraction of 59%%. RISK CATEGORY: High (>3%% Annual Mortality Rate) Nelson Thapa MD Head CT 03/16/17 0000 Signed Impressions: Service Date/Time: Thursday, March 16, 2017 05:52 - CONCLUSION: 1. Stable noncontrast head CT. No acute intracranial abnormality is identified. 2. Right frontal [employer] shunt is in unchanged position and ventricles are stable in size. 3. 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 Erick Reveles MD Objective Remarks GENERAL: Awake and alert talkative and somewhat cooperative SKIN: Warm and dry. HEAD: Atraumatic. Normocephalic. EYES: Pupils equal and round. No scleral icterus. No injection or drainage. Extraocular muscles intact ENT: No nasal bleeding or discharge. Mucous membranes pink and moist. Gold teeth NECK: Trachea midline. No JVD. Supple CARDIOVASCULAR: Regular rate and rhythm. S1 and S2 no S3 or S4 RESPIRATORY: No accessory muscle use. Clear to auscultation. Breath sounds equal bilaterally. GASTROINTESTINAL: Abdomen soft, non-tender, nondistended. Hepatic and splenic margins not palpable. MUSCULOSKELETAL: Extremities without clubbing, cyanosis, or edema. No obvious deformities. NEUROLOGICAL: Awake and alert. No obvious cranial nerve deficits. Motor grossly within normal limits. Five out of 5 muscle strength in the arms and legs. Normal speech. PSYCHIATRIC: Appropriate mood and affect; insight and judgment abnormal. Procedures stress test Medications and IVs Current Medications Aspirin (Aspirin Chew) 162 mg ONCE ONCE PO Last administered on 03/16/17 04: 05; Start 03/16/17 at 03:45; Stop 03/16/17 at 03:46; Status DC Sodium Chloride (NS Flush) 2 ml UNSCH PRN IVF FLUSH AFTER USING IV ACCESS; Start 03/16/17 at 03:45; Stop 03/16/17 at 07:04; Status DC Nitroglycerin (Nitrostat Sl) 0.4 mg ONCE ONCE SL Last administered on 04:05; Start 03/16/17 at 03:45; Stop 03/16/17 at 03:46; Status DC Sodium Chloride 1,000 ml @ 100 mls/hr Q10H IV Last administered on 03/16/17 04:04; Start 03/16/17 at 03:45; Stop 03/16/17 at 07:03; Status DC Ketorolac Tromethamine (Toradol Inj) 30 mg ONCE ONCE IV PUSH Last administered on 03/16/17 05:00; Start 03/16/17 at 04:30; Stop 03/16/17 at 04:31 ; Status DC Sodium Chloride 1,000 ml @ 250 mls/hr Q4H IV Last administered on 03/16/17 06 :23; Start 03/16/17 at 06:15; Stop 03/16/17 at 07:03; Status DC Sodium Chloride 1,000 ml @ 150 mls/hr Q6H40M IV Last administered on 09:20; Start 03/16/17 at 06:40 Sodium Chloride (NS Flush) 2 ml UNSCH PRN IV FLUSH FLUSH AFTER USING IV ACCESS ; Start 03/16/17 at 06:45 Sodium Chloride (NS Flush) 2 ml BID IV FLUSH ; Start 03/16/17 at 09:00 Ondansetron HCl (Zofran Inj) 4 mg Q6H PRN IVP NAUSEA OR VOMITING Last administered on 03/16/17 11:04; Start 03/16/17 at 06:45 Acetaminophen (Tylenol) 650 mg Q6H PRN PO PAIN SCALE 1 TO 2; Start 03/16/17 at 06:45 Acetaminophen/ Hydrocodone Bitart ([place] 5-325 Mg) 1 tab Q4H PRN PO PAIN SCALE 3 TO 5 Last administered on 03/16/17 23:18; Start 03/16/17 at 06:45 Morphine Sulfate (Morphine Inj) 2 mg Q3H PRN IV PUSH PAIN 6-10 Last administered on 03/16/17 11:05; Start 03/16/17 at 06:45 Senna/Docusate Sodium (Geeta-Colace) 1 tab BID PO Last administered on 23:18; Start 03/16/17 at 09:00 Magnesium Hydroxide (Milk Of Magnesia Liq) 30 ml Q12H PRN PO Mild constipation ; Start 03/16/17 at 06:45 Sennosides (Senokot) 17.2 mg Q12H PRN PO Moderate constipation; Start 03/16/17 at 06:45 Bisacodyl (Dulcolax Supp) 10 mg DAILY PRN RECTAL SEVERE CONSITIPATION; Start 03/16/17 at 06:45 Lactulose (Lactulose Liq) 30 ml DAILY PRN PO SEVERE CONSITIPATION; Start at 06:45 Regadenoson (Lexiscan Inj) 0.4 mg STK-MED ONCE .ROUTE Last administered on 03/16 12:55; Start 03/16/17 at 12:55; Stop 03/16/17 at 12:56; Status DC Dextrose (D50w (Vial) Inj) 50 ml UNSCH PRN IV PUSH HYPOGLYCEMIA-SEE COMMENTS; Start 03/16/17 at 14:45 Glucagon (Glucagon Inj) 1 mg UNSCH PRN OTHER HYPOGLYCEMIA-SEE COMMENTS; Start 03/16/17 at 14:45 Insulin Aspart (NovoLOG SUPPLEMENTAL SCALE) 1 ACHS SLIDING SCALE SQ ; Start at 17:00 Nitroglycerin (Nitrostat Sl) 0.4 mg Q5M PRN SL CHEST PAIN; Start 03/16/17 at 14 :45; Stop 03/16/17 at 14:57; Status DC Heparin Sodium (Porcine) (Heparin Inj) 4,000 units ONCE ONCE IV PUSH Last administered on 03/16/17 20:46; Start 03/16/17 at 15:15; Stop 03/16/17 at 15:16 ; Status DC Heparin Sodium (Porcine) (Heparin Inj) 5,000 units UNSCH PRN IV PUSH APTT LESS THAN 25; Start 03/16/17 at 20:45 Heparin Sodium (Porcine) (Heparin Inj) 2,500 units UNSCH PRN IV PUSH APTT 25 TO 39; Start 03/16/17 at 20:45 Heparin Sodium/ Dextrose 250 ml @ 10 mls/hr TITRATE PRN IV Coagulation Management Last administered on 03/16/17 20:48; Start 03/16/17 at 15:30 Atorvastatin Calcium (Lipitor) 40 mg HS PO Last administered on 03/16/17 23:18 ; Start 03/16/17 at 21:00 Nitroglycerin (Nitroglycerin 2% Oint) 1 inch Q6H TOPICAL Last administered on 03/17/17 05:04; Start 03/16/17 at 15:00 Metoprolol Tartrate (Lopressor) 25 mg Q12HR PO ; Start 03/16/17 at 21:00 Lorazepam (Ativan Inj) 1 mg Q4H PRN IV PUSH agitation; Start 03/16/17 at 19:30 A/P Problem List: (1) Atypical chest pain ICD Code: R07.89 - Other chest pain (2) Tobacco abuse ICD Code: Z72.0 - Tobacco use Assessment and Plan 32-year-old male with a 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 He presented to the ED via [facility] with complaints of chest pain. He states that the chest pain began two days ago, rates pain 10/10, agrees to pain being crushing, stabbing and burning, pain is constant, nonradiating. Atypical chest pain rule out ACS - Chest pain x2 days, first set of troponin <0.02, Ck-MC 6.4, total CK 1153, pending second set now - Initial EKG showing sinus bradycardia with occasional supraventricular premature complexes, left ventricular hypertrophy and ST-T changes. - Continue following serial troponin, recheck EKG to monitor for changes - If second troponin negative patient will undergo Irina scan - Toxicology screen ordered, patient has been positive in the past for cocaine on screen - IV Morphine PRN for pain. positive for COCAINE REFUSED CARDIAC CATH- MEDICAL MANAGEMENT Seizure, none at the moment none recently reported - Patient unaware of the dose of his Depakote, has not been taking them for an unknown length of time - Seizure precautions for the moment, will consider resuming when an updated list of medications is brought in by family Asthma, not in exacerbation - Monitor for the moment, consider adding nebulizer treatments if needed - Oxygen saturation in the high 90's to 100 on room air. Tobacco and marijuana use - Counseled on cessation. TBI/mental retardation - supportive care for the moment, as this is chronic VTE - Low risk, SCD's and FATOU hose. NONCOMPLIANCE Discharge Planning Discharge to home today Has Echo ordered once that is done patient can be discharged Zach Bueno DO Mar 17, 2017 09:53
[2017-03-17] MEDS ORDERED: ASPI-516 CHEW (10:07)
[2017-03-17] MEDS ORDERED: ATOR40TA16 PO (10:07)
[2017-03-17] MEDS ORDERED: VITA100T54 PO (10:07)
[2017-03-17] MEDS ORDERED: MULTTAB67 PO (10:07)
[2017-03-17] MEDS ORDERED: FOLI1TAB6 PO (10:07)
--- NOTE | 2017-03-17 10:10 | HHI.DS ---
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 He presented to the ED via [facility] with complaints of chest pain. He states that the chest pain began two days ago, rates pain 10/10, agrees to pain being crushing, stabbing and burning, pain is constant, nonradiating. He denies diaphoresis, but endorses nausea with no vomiting yesterday. He denies any recent injury or trauma. He reports cough but unsure if it is productive, denies leg swelling, or SOB. Patient reports a history of seizures, but he has not been taking any of his medications, he is unaware of what pharmacy he uses. He repots being on Singular and Depakote, unsure of dose. His last reported seizure was "years ago ". At the moment there is no family present patient states that he lives at home with mother and his mother does not know he is in the hospital. An attempt was made to contact next of kin listed on EMR, however number was not correct. He does not have anyone else listed in chart to contact. Exam and history was limited due to patients past medical history of TBI and mental retardation. History was gathered from ER documentation, and past [facility] visits. CBC/BMP: 03/17/17 0327 03/17/17 0327 Significant Findings Laboratory Tests Test 03/16/17 03:45 03/16/17 10:40 03/16/17 17:09 03/16/17 21:00 Monocytes (%) (Auto) 8.5 % (0.0-8.0) Eosinophils (%) (Auto) 5.7 % (0.0-4.0) Estimat Glomerular Filtration Rate 87 ML/MIN (>89) Total Creatine Kinase 1153 U/L (39-308) 775 U/L (39-308) 654 U/L (39-308) Creatine Kinase MB 6.4 NG/ML (0.5-3.6) 5.0 NG/ML (0.5-3.6) 4.0 NG/ML (0.5-3.6) Troponin I LESS THAN 0.02 NG/ML LESS THAN 0.02 NG/ML LESS THAN 0.02 NG/ML Albumin 3.2 GM/DL (3.4-5.0) Urine Cocaine Screen POS (NEG) Test 03/17/17 03:27 Monocytes (%) (Auto) 9.4 % (0.0-8.0) Eosinophils (%) (Auto) 8.6 % (0.0-4.0) Activated Partial Thromboplast Time 31.1 SEC (24.3-30.1) Imaging Last Impressions Chest X-Ray 03/16/17 0342 Signed Impressions: Service Date/Time: Thursday, March 16, 2017 03:54 - CONCLUSION: No acute cardiopulmonary abnormality is identified. Erick Reveles MD Myocardial Perfusion Scan Nuc Med 03/16/17 0000 Signed Impressions: Service Date/Time: Thursday, March 16, 2017 12:37 - CONCLUSION: 1. Mild stress-induced chamber enlargement concerning for triple vessel disease. 2. Focal ischemia in the anterior wall and less prominently in the mid inferior wall. 3. No focal wall motion abnormality with decreased ejection fraction of 59%%. RISK CATEGORY: High (>3%% Annual Mortality Rate) Nelson Thapa MD Head CT 03/16/17 0000 Signed Impressions: Service Date/Time: Thursday, March 16, 2017 05:52 - CONCLUSION: 1. Stable noncontrast head CT. No acute intracranial abnormality is identified. 2. Right frontal [employer] shunt is in unchanged position and ventricles are stable in size. 3. 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 Erick Reveles MD PE at Discharge GENERAL: Awake and alert talkative and somewhat cooperative SKIN: Warm and dry. HEAD: Atraumatic. Normocephalic. EYES: Pupils equal and round. No scleral icterus. No injection or drainage. Extraocular muscles intact ENT: No nasal bleeding or discharge. Mucous membranes pink and moist. Gold teeth NECK: Trachea midline. No JVD. Supple CARDIOVASCULAR: Regular rate and rhythm. S1 and S2 no S3 or S4 RESPIRATORY: No accessory muscle use. Clear to auscultation. Breath sounds equal bilaterally. GASTROINTESTINAL: Abdomen soft, non-tender, nondistended. Hepatic and splenic margins not palpable. MUSCULOSKELETAL: Extremities without clubbing, cyanosis, or edema. No obvious deformities. NEUROLOGICAL: Awake and alert. No obvious cranial nerve deficits. Motor grossly within normal limits. Five out of 5 muscle strength in the arms and legs. Normal speech. PSYCHIATRIC: Appropriate mood and affect; insight and judgment abnormal. Hospital Course 32-year-old male with a PMH of TBI, COT[employer] shunt in place, mental retardation, seizure disorder, DM, asthma, tobacco and marijuana use. He presented to the ED via [facility] with complaints of chest pain. He states that the chest pain began two days ago, rates pain 10/10, agrees to pain being crushing, stabbing and burning, pain is constant, nonradiating. He denies diaphoresis, but endorses nausea with no vomiting yesterday. He denies any recent injury or trauma. He reports cough but unsure if it is productive, denies leg swelling, or SOB. Patient reports a history of seizures, but he has not been taking any of his medications, he is unaware of what pharmacy he uses. He repots being on Singular and Depakote, unsure of dose. His last reported seizure was "years ago ". At the moment there is no family present patient states that he lives at home with mother and his mother does not know he is in the hospital. An attempt was made to contact next of kin listed on EMR, however number was not correct. He does not have anyone else listed in chart to contact. Exam and history was limited due to patients past medical history of TBI and mental retardation. History was gathered from ER documentation, and past [facility] visits. 11-4 patient refused cardiac cath urine drug screen positive for cocaine patient denies using cocaine if echo is stable will dc to home today no new complaints DC TO HOME TODAY Pt Condition on Discharge: Good Discharge Disposition: Discharge Home Discharge Time: > 30 minutes Discharge Instructions DIET: Follow Instructions for: Heart Healthy Diet, Diabetic Diet Speech Therapy-Diet Recommends: Regular Activities you can perform: Regular-No Restrictions Other Activity Instructions: STOP COCAINE AND ALL ILLEGAL DRUGS Follow up Referrals: PCP Follow-up - 1 Week New Medications: Aspirin (Aspirin) 81 Mg Chew 81 MG CHEW DAILY for Blood Clot Prevention, #90 TAB 0 Refills Folic Acid (Folic Acid) 1 Mg Tablet 1 TAB PO DAILY for Nutritional Supplement, #30 TAB Multiple Vitamin (Multiple Vitamin) 1 Tab 1 TAB PO DAILY for Nutritional Supplement, #30 TAB 0 Refills Thiamine (Vitamin B-1) 100 Mg Tab 100 MG PO DAILY for Nutritional Supplement, #30 TAB 0 Refills Atorvastatin (Atorvastatin) 40 Mg Tab 40 MG PO HS for Cholesterol Management, #30 TAB Continued Medications: Acetaminophen (Tylenol) 325 Mg Tab 650 MG PO Q4H PRN for PAIN SCALE 6 TO 10, TAB 0 Refills Albuterol Neb (Albuterol Neb) 2.5 Mg/0.5 Ml Neb 2.5 MG NEB Q4HR NEB PRN for WHEEZING, EA Note: The Albuterol Sulfate Inhalation Solution is concentrated and must be diluted. Read complete instructions carefully before using. Additional Information STOP COCAINE AND ALL ILLEGAL DRUGS Zach Bueno DO Mar 17, 2017 10:10
--- NOTE | 2017-03-17 11:29 | ECHRPT ---
Indication: Chest Pain CONCLUSIONS Normal left ventricular size. Wall thickness is normal. The left ventricular systolic function is low normal with an estimated ejection fraction in the rang e of 50- 55%. BP: / HR: Rhythm: MEASUREMENTS (Male / Female) Normal Values Technical Quality:Good 2D ECHO LV Diastolic Diameter PLAX 4.9 cm 4.2 - 5.9 / 3.9 - 5.3 cm LV Systolic Diameter PLAX 3.9 cm IVS Diastolic Thickness 1.3 cm 0.6 - 1.0 / 0.6 - 0.9 cm LVPW Diastolic Thickness 0.8 cm 0.6 - 1.0 / 0.6 - 0.9 cm LV Relative Wall Thickness 0.4 RV Internal Dim ED PLAX 2.4 cm LA Systolic Diameter LX 3.6 cm 3.0 - 4.0 / 2.7 - 3.8 cm M-MODE Aortic Root Diameter MM 3.9 cm AV Cusp Separation MM 2.3 cm DOPPLER Mitral E Point Velocity 92.3 cm/s Mitral A Point Velocity 71.1 cm/s Mitral E to A Ratio 1.3 FINDINGS LEFT VENTRICLE Normal left ventricular size. Wall thickness is normal. The left ventricular systolic function is low normal with an estimated ejection fraction in the rang e of 50- 55%. RIGHT VENTRICLE Normal right ventricular size and systolic function. LEFT ATRIUM The left atrial size is normal. RIGHT ATRIUM The right atrial size is normal. ATRIAL SEPTUM Normal atrial septal thickness without atrial level shunting by limited color doppler interrogation. AORTA The aortic root and proximal ascending aorta are normal in size on limited imaging. MITRAL VALVE Structurally normal mitral valve. No mitral valve stenosis or regurgitation. AORTIC VALVE Trileaflet aortic valve. No aortic valve stenosis or regurgitation. TRICUSPID VALVE Structurally normal tricuspid valve. No tricuspid valve stenosis or regurgitation. PULMONARY VALVE The pulmonary valve is not well visualized. VESSELS The inferior vena cava is normal in size. PERICARDIUM No pericardial effusion. Praful Randle MD (Electronically Signed) Final Date:17 March 2017 11:28
[2017-03-17 11:32] LABS: APTT (PATIENT) 29.7 SEC (24.3-30.1)
--- NOTE | 2017-03-17 14:57 | EKG ---
Date Performed: 03/16/2017 Time Performed: 14:22:38 PTAGE: 32 years EKG: Sinus rhythm WITH SINUS ARRHYTHMIA WITH FIRST DEGREE AV BLOCK POSSIBLE LEFT ATRIAL ENLARGEMENT POSSIBLE LEFT VENT RICULAR HYPERTROPHY PROLONGED QT INTERVAL ABNORMAL ECG PREVIOUS TRACING : 03/16/2017 03.32 Since previous tracing, no significant change noted DOCTOR: Earl Mercado Interpretating Date/Time 03/17/2017 14:57:05
== END 2017-03-17 13:22 | disposition home or self-care (01) | DRG 313 ==
LOC: NEPC 03:24 → NEDA 06:26 → NEPHCDU 07:35 → OBSVTOIN 14:56 → HCPC 22:00
PROVIDERS: ADMIT Hospitalist; ATTEND Hospitalist
DX: R07.89 Other chest pain (principal); I25.10 Atherosclerotic heart disease of native coronary artery without angina pectoris; G93.89 Other specified disorders of brain; I10 Essential (primary) hypertension; F14.10 Cocaine abuse, uncomplicated; F17.210 Nicotine dependence, cigarettes, uncomplicated; E11.9 Type 2 diabetes mellitus without complications; G40.909 Epilepsy, unspecified, not intractable, without status epilepticus; J45.909 Unspecified asthma, uncomplicated; F79 Unspecified intellectual disabilities; Z87.820 Personal history of traumatic brain injury; Z91.14 Patient's other noncompliance with medication regimen; Z91.19 Patient's noncompliance with other medical treatment and regimen; Z98.2 Presence of cerebrospinal fluid drainage device
CPT/HCPCS: 70450; 71010; 76937; 78452; 80048; 80053; 80061; 80076; 80307; 82550; 82552; 82948; 83036; 83735; 84484; 85025; 85027; 85610; 85730; 93005; 93017; 93306; 96361; 96374; A9502; J1644; J1885; J2270; J2405; J2785; J7030

== ENCOUNTER 2017-04-03 02:56 | Observation (INO) | payer SELFPAY ==
[~2017-04-03] VITALS: Ht 182.9 cm; Wt 111.5 kg
[2017-04-03] VITALS (17 sets, daily range): BP systolic 134–179; BP diastolic 78–93; PULSE 60–105; RESP 18–24; TEMP 97.5–98.7; O2SAT 90–98
[~2017-04-03 02:56] MED LIST changes: +ASPI-516 CHEW; +ATOR40TA16 PO; +FOLI1TAB6 PO; +MULTTAB67 PO; +VITA100T54 PO
[2017-04-03] MEDS ORDERED: SODIUM CHLORIDE 0.9% FLUSH 10 ML FLUSH IVF PRN (03:15)
[2017-04-03] MEDS ORDERED: ASPIRIN 81 MG CHEW TAB PO ONE (03:15)
[2017-04-03] MEDS ORDERED: SODIUM CHLORID 0.9% 500 ML INJ 500 ML IV ONE (03:15)
[2017-04-03] MEDS ORDERED: NITROGLYCERIN 2% OINT 1 GM PACKET TOP ONE (03:15)
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
[2017-04-03 03:30] LABS: AUTOMATED NEUTROPHIL # 3.7 TH/MM3 (1.8-7.7); BASOPHIL # 0.1 TH/MM3 (0-0.2); BASOPHIL % 1.6 % (0.0-2.0); EOSINOPHIL # 0.4 TH/MM3 (0-0.4); EOSINOPHIL % 6.2 % (0.0-4.0); HEMATOCRIT 44.1 % (39.0-51.0); HEMOGLOBIN 14.5 GM/DL (13.0-17.0); LYMPH % 33.4 % (9.0-44.0); LYMPHOCYTE # 2.3 TH/MM3 (1.0-4.8); MEAN CORPUSCULAR HEMOGLOBIN 28.6 PG (27.0-34.0); MEAN CORPUSCULAR HGB CONC 32.9 % (32.0-36.0); MEAN PLATELET VOLUME 8.9 FL (7.0-11.0); MONO % 4.4 % (0.0-8.0); MONOCYTE # 0.3 TH/MM3 (0-0.9); NEUT % 54.4 % (16.0-70.0); PLATELET COUNT 255 TH/MM3 (150-450); RED BLOOD COUNT 5.07 MIL/MM3 (4.50-5.90); RED CELL DISTRIBUTION WIDTH 13.6 % (11.6-17.2); WHITE BLOOD COUNT 6.9 TH/MM3 (4.0-11.0)
[2017-04-03 03:43] LABS: PROTHROMBIN TIME - PATIENT 9.7 SEC (9.8-11.6)
[2017-04-03] MEDS ORDERED: ACETAMINOPHEN 325 MG TAB PO ONE (04:00)
[2017-04-03 04:11] LABS: ALBUMIN 3.6 GM/DL (3.4-5.0); ALKALINE PHOSPHATASE 70 U/L (45-117); ALT (GPT) 33 U/L (12-78); AST (GOT) 28 U/L (15-37); BICARBONATE 24.5 MEQ/L (21.0-32.0); BLOOD UREA NITROGEN 11 MG/DL (7-18); CALCIUM 8.6 MG/DL (8.5-10.1); CHLORIDE 110 MEQ/L (98-107); CREATININE 1.05 MG/DL (0.60-1.30); GLOMERULAR FILTRATION RATE 99 ML/MIN (>89); GLUCOSE,RANDOM 128 MG/DL (74-106); SODIUM (NA) 141 MEQ/L (136-145); TOTAL BILIRUBIN ADULT 0.2 MG/DL (0.2-1.0); TOTAL PROTEIN 7.5 GM/DL (6.4-8.2); TROPONIN I LESS THAN 0.02 NG/ML (0.02-0.05)
[2017-04-03] MEDS ORDERED: SODIUM CHLOR 0.9% 1000 ML INJ 1,000 ML IV SCH (04:37)
[2017-04-03] MEDS ORDERED: SODIUM CHLORIDE 0.9% FLUSH 10 ML FLUSH IV FLUSH PRN (04:45)
[2017-04-03] MEDS: SODIUM CHLORIDE 0.9% FLUSH 10 ML FLUSH IV FLUSH SCH ×2 (08:45→21:00)
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
[2017-04-03] MEDS ORDERED: NITROGLYCERIN 2% OINT 1 GM PACKET TOP PRN (09:45)
[2017-04-03 10:16] LABS: TROPONIN I LESS THAN 0.02 NG/ML (0.02-0.05)
--- NOTE | 2017-04-03 10:24 | RADRPT ---
EXAM DATE/TIME: 04/03/2017 10:03 [place] COMPARISON: CHEST PA & LAT, June 01, 2011, 7:56. INDICATIONS : Chest pain. MEDICAL HISTORY : Hypertension. Diabetes mellitus type II. Asthma SURGICAL HISTORY : Shunt, Left upper arm. ENCOUNTER: Initial ACUITY: 1 day PAIN SCORE: 4/10 LOCATION: Bilateral chest FINDINGS: PA and lateral views of the chest demonstrate the lungs to be symmetrically aerated without evidence of mass, infiltrate or effusion. The cardiomediastinal contours are unremarkable. Osseous structure s are intact. CONCLUSION: Normal examination. Catheter shunt overlies the right chest. Ton Siddiqui MD on April 03, 2017 at 10:21 Board Certified Radiologist. This report was verified electronically.
[2017-04-03] MEDS: RESP: ALBUTEROL 2.5 MG/IPRATROPIUM 0.5 MG NEB (SCH) NEB ×2 (14:00→21:04)
--- NOTE | 2017-04-03 15:41 | EKG ---
Date Performed: 04/03/2017 Time Performed: 09:48:22 PTAGE: 32 years EKG: Sinus rhythm MINIMAL VOLTAGE CRITERIA FOR LVH, CONSIDER NORMAL VARIANT BORDERLINE ECG PREVIOUS TRACING : 04/03/2017 03.13 Compared to prior tracing no significant change DOCTOR: Earl Mercado Interpretating Date/Time 04/03/2017 15:41:04
--- NOTE | 2017-04-03 15:41 | EKG ---
Date Performed: 04/03/2017 Time Performed: 03:13:09 PTAGE: 32 years EKG: Sinus rhythm VOLTAGE CRITERIA FOR LVH ABNORMAL ECG PREVIOUS TRACING : 04/01/2017 17.09 Compared to prior tracing no significant change DOCTOR: Earl Mercado Interpretating Date/Time 04/03/2017 15:40:36
[2017-04-03 16:41] LABS: TROPONIN I LESS THAN 0.02 NG/ML (0.02-0.05)
[2017-04-03] MEDS ORDERED: ACETAMINOPHEN 325 MG TAB PO PRN (20:30)
[2017-04-03] MEDS ORDERED: ACETAMINOPHEN/HYDROcodone 325 MG/10 MG TAB PO PRN (20:30)
[2017-04-03] MEDS ORDERED: METOPROLOL TARTRATE 25 MG TAB PO ONE (20:45)
[2017-04-03] MEDS ORDERED: ATORVASTATIN 40 MG TAB PO SCH (21:00)
[2017-04-03] MEDS: ACETAMINOPHEN/HYDROcodone 325 MG/5 MG TAB PO PRN (21:19)
--- NOTE | 2017-04-03 23:17 | EKG ---
Date Performed: 04/03/2017 Time Performed: 21:16:48 PTAGE: 32 years EKG: Sinus rhythm Extensive ST elevation - consider pericarditis Borderline ECG PREVIOUS TRACING : 04/03/2017 09.48 Compared to prior tracing no significant change DOCTOR: Les Subramanian Interpretating Date/Time 04/03/2017 23:15:47
[2017-04-04] VITALS (11 sets, daily range): BP systolic 134; BP diastolic 80; PULSE 56–74; TEMP 97.6; O2SAT 95
[2017-04-04] MEDS: RESP: ALBUTEROL 2.5 MG/IPRATROPIUM 0.5 MG NEB (SCH) NEB ×2 (06:25→13:51)
[2017-04-04 08:17] LABS: BASOPHIL % 0.7 % (0.0-2.0); EOSINOPHIL # 0.3 TH/MM3 (0-0.4); EOSINOPHIL % 7.1 % (0.0-4.0); HEMATOCRIT 43.5 % (39.0-51.0); HEMOGLOBIN 14.4 GM/DL (13.0-17.0); LYMPH % 42.8 % (9.0-44.0); LYMPHOCYTE # 1.9 TH/MM3 (1.0-4.8); MEAN CELL VOLUME 86.4 FL (80.0-100.0); MEAN CORPUSCULAR HEMOGLOBIN 28.5 PG (27.0-34.0); MEAN PLATELET VOLUME 8.2 FL (7.0-11.0); MONO % 5.3 % (0.0-8.0); MONOCYTE # 0.2 TH/MM3 (0-0.9); NEUT % 44.1 % (16.0-70.0); PLATELET COUNT 222 TH/MM3 (150-450); RED BLOOD COUNT 5.04 MIL/MM3 (4.50-5.90); RED CELL DISTRIBUTION WIDTH 13.5 % (11.6-17.2); WHITE BLOOD COUNT 4.5 TH/MM3 (4.0-11.0)
[2017-04-04 08:49] LABS: BICARBONATE 26.8 MEQ/L (21.0-32.0); CALCIUM 9.6 MG/DL (8.5-10.1); CREATININE 0.9 MG/DL (0.60-1.30)
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
[2017-04-04 08:57] LABS: CHOLESTEROL/ HDL RATIO 3.35 RATIO; HDL CHOLESTEROL 43.5 MG/DL (40.0-60.0)
[2017-04-04] MEDS ORDERED: ASPIRIN 81 MG CHEW TAB CHEW SCH (09:00)
[2017-04-04] MEDS: SODIUM CHLORIDE 0.9% FLUSH 10 ML FLUSH IV FLUSH SCH (09:00)
[2017-04-04] MEDS: ACETAMINOPHEN/HYDROcodone 325 MG/5 MG TAB PO PRN (11:54)
--- NOTE | 2017-04-04 13:19 | PD.CARD.PN ---
Subjective Subjective Remarks No CP or SOB, feels fine, wants to go home now Objective Medications Current Medications Medications (Trade) Dose Ordered Sig/Hattie Route Start Time Stop Time Status Last Admin Sodium Chloride 1,000 ml @ 100 mls/hr Q10H IV 04/03/17 04:37 04/03/17 05:01 (NS Flush) 2 ml BID IV FLUSH 04/03/17 09:00 04/03/17 21:00 (NS Flush) 2 ml UNSCH PRN IV FLUSH 04/03/17 04:45 (Aspirin Chew) 81 mg DAILY CHEW 04/04/17 09:00 04/04/17 09:29 (Lipitor) 40 mg HS PO 04/03/17 21:00 04/03/17 21:19 (Nitroglycerin 2% Oint) 1 inch Q6H PRN TOP 04/03/17 09:45 04/03/17 23:47 (Duoneb Neb) 1 ampule Q6HR WHILE AWAKE NEB NEB 04/03/17 14:00 04/04/17 06:25 (Tylenol) 650 mg Q4H PRN PO 04/03/17 20:30 ([place] 5-325 Mg) 1 tab Q4H PRN PO 04/03/17 20:30 04/04/17 11:54 ([place] 10-325 Mg) 1 tab Q4H PRN PO 04/03/17 20:30 Vital Signs / I&O Vital Signs Date Time Temp Pulse Resp B/P (MAP) Pulse Ox O2 Delivery O2 Flow Rate FiO2 04/04/17 10:00 66 04/04/17 09:00 56 04/04/17 08:00 74 04/04/17 07:00 66 04/04/17 05:06 56 04/04/17 04:45 74 04/04/17 03:37 64 04/04/17 03:00 97.6 64 134/80 (98) 95 04/04/17 02:00 68 04/04/17 01:00 62 04/04/17 00:00 60 04/03/17 23:00 98.6 78 168/88 (114) 95 04/03/17 23:00 72 04/03/17 22:00 78 04/03/17 21:07 95 04/03/17 21:00 76 04/03/17 20:00 76 04/03/17 20:00 98.7 105 154/92 (112) 92 04/03/17 19:00 77 04/03/17 16:00 70 04/03/17 15:01 97.5 64 18 146/93 (110) 96 04/03/17 15:00 60 04/03/17 14:00 66 04/03/17 13:32 I/O 04/03/17 04/03/17 04/03/17 04/04/17 04/04/17 04/04/17 07:00 15:00 23:00 07:00 15:00 23:00 Intake Total 500 ml 960 ml 240 ml Output Total 600 ml 200 ml 1100 ml Balance 500 ml -600 ml 760 ml -860 ml Intake Oral 960 ml 240 ml IV Total 500 ml Output Urine Total 600 ml 200 ml 1100 ml # Voids 1 # Bowel Movements 1 Physical Exam GENERAL: Walking in the halls SKIN: Warm and dry. HEAD: Normocephalic. EYES: No scleral icterus. No injection or drainage. NECK: Supple, trachea midline. No JVD or lymphadenopathy. CARDIOVASCULAR: Regular rate and rhythm without murmurs, gallops, or rubs. RESPIRATORY: Breath sounds equal bilaterally. No accessory muscle use. GASTROINTESTINAL: Abdomen soft, non-tender, nondistended. MUSCULOSKELETAL: No cyanosis, or edema. Laboratory Laboratory Tests Test 04/03/17 16:07 04/04/17 07:51 Total Creatine Kinase 543 U/L Creatine Kinase MB 3.5 NG/ML Creatine Kinase MB % 0.6 % Troponin I LESS THAN 0.02 NG/ML White Blood Count 4.5 TH/MM3 Red Blood Count 5.04 MIL/MM3 Hemoglobin 14.4 GM/DL Hematocrit 43.5 % Mean Corpuscular Volume 86.4 FL Mean Corpuscular Hemoglobin 28.5 PG Mean Corpuscular Hemoglobin Concent 33.0 % Red Cell Distribution Width 13.5 % Platelet Count 222 TH/MM3 Mean Platelet Volume 8.2 FL Neutrophils (%) (Auto) 44.1 % Lymphocytes (%) (Auto) 42.8 % Monocytes (%) (Auto) 5.3 % Eosinophils (%) (Auto) 7.1 % Basophils (%) (Auto) 0.7 % Neutrophils # (Auto) 2.0 TH/MM3 Lymphocytes # (Auto) 1.9 TH/MM3 Monocytes # (Auto) 0.2 TH/MM3 Eosinophils # (Auto) 0.3 TH/MM3 Basophils # (Auto) 0.0 TH/MM3 CBC Comment DIFF FINAL Differential Comment Blood Urea Nitrogen 5 MG/DL Creatinine 0.90 MG/DL Random Glucose 95 MG/DL Calcium Level 9.6 MG/DL Sodium Level 142 MEQ/L Potassium Level 3.9 MEQ/L Chloride Level 109 MEQ/L Carbon Dioxide Level 26.8 MEQ/L Anion Gap 6 MEQ/L Estimat Glomerular Filtration Rate 118 ML/MIN Triglycerides Level 59 MG/DL Cholesterol Level 146 MG/DL LDL Cholesterol 91 MG/DL HDL Cholesterol 43.5 MG/DL Cholesterol/HDL Ratio 3.35 RATIO Thyroid Stimulating Hormone 3rd Gen 3.040 uIU/ML Assessment and Plan Problem List: (1) Atypical chest pain ICD Codes: R07.89 - Other chest pain (2) Cocaine abuse ICD Codes: F14.10 - Cocaine abuse, uncomplicated (3) Tobacco abuse ICD Codes: Z72.0 - Tobacco use (4) Seizures ICD Codes: R56.9 - Unspecified convulsions (5) Smoking ICD Codes: F17.200 - Nicotine dependence, unspecified, uncomplicated (6) Rhabdomyolysis ICD Codes: M62.82 - Rhabdomyolysis Assessment and Plan No recurrent angina. No CHF. Ambulating without difficulties. Wants to go home now. DC home. Counseled to quit smoking and using cocaine. D/w pt and family. Lea Milligan MD Apr 04, 2017 13:19
[2017-04-04] MEDS ORDERED: ASPI-516 CHEW (13:33)
[2017-04-04] MEDS ORDERED: ATOR40TA16 PO (13:33)
[2017-04-04] MEDS ORDERED: ALBU.5I NEB (13:33)
--- NOTE | 2017-04-04 13:36 | HHI.DCPOC ---
Discharge Care Plan Diagnosis: (1) Atypical chest pain (2) Cocaine abuse (3) Rhabdomyolysis (4) Seizures (5) Tobacco abuse Goals to Promote Your Health * To prevent worsening of your condition and complications * To maintain your health at the optimal level Directions to Meet Your Goals Take your medications as prescribed Follow your dietary instruction Follow activity as directed Keep your appointments as scheduled Take your immunizations and boosters as scheduled If your symptoms worsen call your PCP, if no PCP go to Urgent Care Center or Emergency Room Smoking is Dangerous to Your Health. Avoid second hand smoke Call the 24-hour hour crisis hotline for domestic abuse at Luigi Gutierrez MD Apr 04, 2017 13:36
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
== END 2017-04-04 14:25 | disposition home or self-care (01) ==
LOC: NEPE 02:56 → NEDA 04:39 → NEDH 09:36 → HCIS 13:37
PROVIDERS: ADMIT Hospitalist; ATTEND Hospitalist
DX: R07.89 Other chest pain (principal); F14.10 Cocaine abuse, uncomplicated; I10 Essential (primary) hypertension; R94.31 Abnormal electrocardiogram [ECG] [EKG]; R94.39 Abnormal result of other cardiovascular function study; E11.9 Type 2 diabetes mellitus without complications; G93.89 Other specified disorders of brain; G40.909 Epilepsy, unspecified, not intractable, without status epilepticus; F79 Unspecified intellectual disabilities; M62.82 Rhabdomyolysis; J45.909 Unspecified asthma, uncomplicated; F41.9 Anxiety disorder, unspecified; F17.200 Nicotine dependence, unspecified, uncomplicated; Z79.899 Other long term (current) drug therapy; Z79.82 Long term (current) use of aspirin; Z91.14 Patient's other noncompliance with medication regimen; Z87.820 Personal history of traumatic brain injury; Z98.2 Presence of cerebrospinal fluid drainage device
CPT/HCPCS: 71020; 80048; 80053; 80061; 82550; 82552; 83735; 84443; 84484; 85025; 85610; 85730; 93005; 94640; 94664; 96360; G0378; J7030; J7040

== ENCOUNTER 2017-05-11 08:26 | Emergency (ER) | payer SELFPAY ==
[~2017-05-11] VITALS: Ht 182.9 cm; Wt 100.0 kg
[2017-05-11 08:35] VITALS: BP 166/89; PULSE 67; RESP 15; TEMP 97.6; O2SAT 95
[2017-05-11] MEDS ORDERED: BACT800T5 PO (09:09)
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
== END 2017-05-11 09:34 | disposition left against medical advice (07) ==
LOC: NEPD 08:26
DX: L02.413 Cutaneous abscess of right upper limb (principal); J45.909 Unspecified asthma, uncomplicated; F17.200 Nicotine dependence, unspecified, uncomplicated
CPT/HCPCS: 99283

== ENCOUNTER 2017-06-03 03:35 | Observation (INO) | payer SELFPAY ==
[2017-06-03] VITALS (9 sets, daily range): BP systolic 123–156; BP diastolic 66–90; PULSE 48–90; RESP 16–18; TEMP 97.4–98.8; O2SAT 89–99
[~2017-06-03] VITALS: Ht 182.9 cm; Wt 100.0 kg
[~2017-06-03 03:35] MED LIST changes: +BACT800T5 PO
[2017-06-03] MEDS ORDERED: SODIUM CHLORIDE 0.9% FLUSH 10 ML FLUSH IVF PRN (03:45)
[2017-06-03] MEDS: RESP: ALBUTEROL 2.5 MG/IPRATROPIUM 0.5 MG NEB (SCH) INH ×2 (03:58→03:59)
[2017-06-03 04:10] LABS: ALBUMIN 3.9 GM/DL (3.4-5.0); ALT (GPT) 25 U/L (12-78); AST (GOT) 25 U/L (15-37); AUTOMATED NEUTROPHIL # 3.6 TH/MM3 (1.8-7.7); BASOPHIL # 0.1 TH/MM3 (0-0.2); BASOPHIL % 1.6 % (0.0-2.0); BICARBONATE 29.1 MEQ/L (21.0-32.0); BLOOD UREA NITROGEN 14 MG/DL (7-18); CALCIUM 8.6 MG/DL (8.5-10.1); CHLORIDE 106 MEQ/L (98-107); CREATININE 1.23 MG/DL (0.60-1.30); EOSINOPHIL # 0.4 TH/MM3 (0-0.4); EOSINOPHIL % 5.9 % (0.0-4.0); GLOMERULAR FILTRATION RATE 82 ML/MIN (>89); GLUCOSE,RANDOM 85 MG/DL (74-106); HEMATOCRIT 42.3 % (39.0-51.0); HEMOGLOBIN 14.3 GM/DL (13.0-17.0); LYMPH % 32.9 % (9.0-44.0); LYMPHOCYTE # 2.2 TH/MM3 (1.0-4.8); MAGNESIUM 2.3 MG/DL (1.5-2.5); MEAN CELL VOLUME 86.4 FL (80.0-100.0); MEAN CORPUSCULAR HEMOGLOBIN 29.3 PG (27.0-34.0); MEAN CORPUSCULAR HGB CONC 33.8 % (32.0-36.0); MEAN PLATELET VOLUME 8.7 FL (7.0-11.0); MONO % 5.8 % (0.0-8.0); MONOCYTE # 0.4 TH/MM3 (0-0.9); NEUT % 53.8 % (16.0-70.0); PLATELET COUNT 263 TH/MM3 (150-450); RED BLOOD COUNT 4.89 MIL/MM3 (4.50-5.90); RED CELL DISTRIBUTION WIDTH 13.2 % (11.6-17.2); SODIUM (NA) 141 MEQ/L (136-145); WHITE BLOOD COUNT 6.6 TH/MM3 (4.0-11.0)
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
[2017-06-03 04:15] LABS: ALKALINE PHOSPHATASE 66 U/L (45-117); TOTAL BILIRUBIN ADULT 0.6 MG/DL (0.2-1.0); TOTAL PROTEIN 7.9 GM/DL (6.4-8.2); TROPONIN I LESS THAN 0.02 NG/ML (0.02-0.05)
[2017-06-03] MEDS ORDERED: NITROGLYCERIN 2% OINT 1 GM PACKET TOPICAL ONE (04:15)
[2017-06-03] MEDS ORDERED: NITROGLYCERIN 0.4 MG SL 25 TABS/BTL SL ONE (04:15)
[2017-06-03 04:21] LABS: PROTHROMBIN TIME - PATIENT 10.3 SEC (9.8-11.6)
[2017-06-03 04:22] LABS: D-DIMER 0.22 MG/L FEU (0.00-0.50)
--- NOTE | 2017-06-03 04:27 | RADRPT ---
EXAM DATE/TIME: 06/03/2017 04:14 [facility] COMPARISON: CHEST SINGLE AP, March 16, 2017, 3:54. INDICATIONS : Short of breath. MEDICAL HISTORY : Non responsive. SURGICAL HISTORY : Non responsive. ENCOUNTER: Initial ACUITY: 1 day PAIN SCORE: 110 LOCATION: Bilateral chest FINDINGS: A single view of the chest demonstrates the lungs to be symmetrically aerated without evidence of mas s, infiltrate or effusion. The cardiomediastinal contours are unremarkable. Osseous structures are intact. Shunt catheter tubing is again noted projected over the right chest wall. There are multiple overlying electrocardiogram leads. CONCLUSION: No acute cardiopulmonary disease. Rudy Fowler MD on June 03, 2017 at 4:25 Board Certified Radiologist. This report was verified electronically.
[2017-06-03] MEDS ORDERED: LACTATED RINGER'S 1000 ML INJ 1,000 ML IV ONE (04:30)
[2017-06-03] MEDS ORDERED: POTASSIUM CHLORIDE 20 MEQ CONTROLLED RELEASE TAB PO ONE (05:00)
[2017-06-03] MEDS ORDERED: IOHEXOL 350 MG/ML 10 ML VIAL (for RAD DIAG) IVCONTRAST ONE (05:05)
--- NOTE | 2017-06-03 05:08 | RADRPT ---
EXAM DATE/TIME: 06/03/2017 04:49 [facility] COMPARISON: No previous studies available for comparison. INDICATIONS : Chest pain. IV CONTRAST: 75 cc Omnipaque 350 (iohexol) IV RADIATION DOSE: 11.2 CTDIvol (mGy) MEDICAL HISTORY : Cardiovascular disease. Hypertension. Seizures. SURGICAL HISTORY : None. ENCOUNTER: Initial ACUITY: 1 day PAIN SCALE: 5/10 LOCATION: Bilateral chest TECHNIQUE: Volumetric scanning of the chest was performed using a pulmonary embolism protocol MIP images were re constructed. Using automated exposure control and adjustment of the mA and/or kV according to patien t size, radiation dose was kept as low as reasonably achievable to obtain optimal diagnostic quality images. DICOM format image data is available electronically for review and comparison. Follow-up recommendations for detected pulmonary nodules are based at a minimum on nodule size and pa tient risk factors according to Fleischner Society Guidelines. FINDINGS: PULMONARY ARTERIES: Suboptimal opacification of the pulmonary arteries. No filling defects are seen in the pulmonary geovanny jovanna through the segmental level. LUNGS: There is no consolidation or pneumothorax . No concerning pulmonary nodule is visualized. PLEURAE: There is no pleural thickening or pleural effusion. MEDIASTINUM: There is good visualization of the great vessels of the middle mediastinum. No evidence of mediastin al or hilar adenopathy/mass. MUSCULOSKELETAL: Within normal limits for patient age. MISCELLANEOUS: The visualized upper abdominal organs demonstrate no acute abnormality. There is moderate hepatic C. stenosis. CONCLUSION: 1. No evidence of pulmonary embolism. There is mildly suboptimal opacification of pulmonary arteries. 2. The lungs are clear with no infiltrates or effusions. Rudy Fowler MD on June 03, 2017 at 5:04 Board Certified Radiologist. This report was verified electronically.
[2017-06-03] MEDS ORDERED: SODIUM CHLORIDE 0.9% FLUSH 10 ML FLUSH IV FLUSH PRN (06:30)
[2017-06-03 06:49] LABS: BILIRUBIN, URINE NEG (NEG); BLOOD, URINE NEG (NEG); GLUCOSE,URINE NEG (NEG); KETONE, URINE NEG (NEG); MUCUS URINE FEW /lpf (OCC); NITRITE,URINE NEG (NEG); SQUAMOUS EPITHELIAL CELL URINE <1 /hpf (0-5); URINE COLOR YELLOW (YELLW/STRAW); URINE LEUKOCYTE ESTERASE NEG (NEG)
[2017-06-03] MEDS: D5-1/2 NS + KCL 20 MEQ INJ 1,000 ML IV SCH ×2 (07:02→10:09)
[2017-06-03] MEDS: SODIUM CHLORIDE 0.9% FLUSH 10 ML FLUSH IV FLUSH SCH ×2 (09:00→20:44)
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
[2017-06-03] MEDS ORDERED: RESP: ALBUTEROL 2.5 MG/3 ML NEB (PRN) NEB (09:30)
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
--- NOTE | 2017-06-03 19:47 | EKG ---
Date Performed: 06/03/2017 Time Performed: 03:37:15 PTAGE: 32 years EKG: NORMAL Sinus rhythm DIFFUSE ST ELEVATION CONSISTENT WITH EARLY REPOLARIZATION, VS PERICARDITIS,INJURY CANNOT BE COMPLETE LY EXCLUDED. Clinical correlation is recommended ABNORMAL ECG PREVIOUS TRACING 04/03/17 DOCTOR: Nova Troncoso Interpretating Date/Time 06/03/2017 19:46:43
[2017-06-03] MEDS ORDERED: ATORVASTATIN 40 MG TAB PO SCH (21:00)
[2017-06-04] VITALS (8 sets, daily range): BP systolic 119–138; BP diastolic 71–83; PULSE 51–75; RESP 18; TEMP 97.7–98; O2SAT 94–98
[2017-06-04] MEDS: SODIUM CHLORIDE 0.9% FLUSH 10 ML FLUSH IV FLUSH SCH (08:52)
[2017-06-04] MEDS ORDERED: FOLIC ACID 1 MG TAB PO SCH (09:00)
[2017-06-04] MEDS ORDERED: MULTIVITAMIN TAB PO SCH (09:00)
[2017-06-04] MEDS ORDERED: ASPIRIN 81 MG CHEW TAB CHEW SCH (09:00)
[2017-06-04] MEDS ORDERED: THIAMINE HCL 100 MG TAB PO SCH (09:00)
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
[2017-06-04 11:41] LABS: BICARBONATE 30.9 MEQ/L (21.0-32.0); CALCIUM 9.1 MG/DL (8.5-10.1); CREATININE 1.01 MG/DL (0.60-1.30)
[2017-06-04 11:45] LABS: TROPONIN I LESS THAN 0.02 NG/ML (0.02-0.05)
--- NOTE | 2017-06-04 15:51 | HHI.DCPOC ---
Discharge Care Plan Diagnosis: (1) Chest pain, rule out acute myocardial infarction (2) Abnormal stress test (3) Tobacco abuse (4) Cocaine abuse Goals to Promote Your Health * To prevent worsening of your condition and complications * To maintain your health at the optimal level Directions to Meet Your Goals Take your medications as prescribed Follow your dietary instruction Follow activity as directed Keep your appointments as scheduled Take your immunizations and boosters as scheduled If your symptoms worsen call your PCP, if no PCP go to Urgent Care Center or Emergency Room Smoking is Dangerous to Your Health. Avoid second hand smoke Call the 24-hour hour crisis hotline for domestic abuse at Fiona Gonzalez PA-C Jun 04, 2017 3:51 pm
--- NOTE | 2017-06-04 16:06 | EKG ---
Date Performed: 06/03/2017 Time Performed: 10:10:12 PTAGE: 32 years EKG: SINUS BRADYCARDIA WITH SINUS ARRHYTHMIA WITH FIRST DEGREE AV BLOCK MODERATE VOLTAGE CRITERI A FOR LVH, CONSIDER NORMAL VARIANT ABNORMAL ECG PREVIOUS TRACING : 06/03/2017 03.37 DOCTOR: Ton Simon Interpretating Date/Time 06/04/2017 16:04:24
--- NOTE | 2017-06-04 17:45 | PD.CARD.PN ---
Subjective Subjective Remarks Patient was seen earlier this afternoon, late entry No chest pain/SOB Objective Medications Current Medications Sodium Chloride (NS Flush) 2 ml UNSCH PRN IVF FLUSH AFTER USING IV ACCESS; Start 06/03/17 at 03:45; Stop 06/03/17 at 06:42; Status DC Albuterol/ Ipratropium (Duoneb Neb) 1 ampule Q15M INH Last administered on 06/03at 03:59; Start 06/03/17 at 03:45; Stop 06/03/17 at 04:01; Status DC Nitroglycerin (Nitrostat Sl) 0.4 mg ONCE ONCE SL Last administered on at 04:35; Start 06/03/17 at 04:15; Stop 06/03/17 at 04:16; Status DC Nitroglycerin (Nitroglycerin 2% Oint) 1 inch ONCE ONCE TOPICAL Last administered on 06/03/17at 04:35; Start 06/03/17 at 04:15; Stop 06/03/17 at 04:16 ; Status DC Lactated Ringer's 1,000 ml @ 999 mls/hr BOLUS ONCE IV Last administered on at 04:35; Start 06/03/17 at 04:30; Stop 06/03/17 at 05:30; Status DC Potassium Chloride (KCl) 20 meq ONCE ONCE PO Last administered on 06/03/17at 06 :19; Start 06/03/17 at 05:00; Stop 06/03/17 at 05:01; Status DC Iohexol (Omnipaque 350 Inj) 70 ml STK-MED ONCE IVCONTRAST Last administered on 06/03/17at 05:05; Start 06/03/17 at 05:05; Stop 06/03/17 at 05:06; Status DC Potassium Chloride/Dextrose/ Sod Cl 1,000 ml @ 75 mls/hr [id number] IV Last administered on 06/03/17at 07:02; Start 06/03/17 at 06:30; Stop 06/04/17 at 15:30 ; Status DC Sodium Chloride (NS Flush) 2 ml BID IV FLUSH Last administered on 06/04/17at 08: 52; Start 06/03/17 at 09:00; Stop 06/04/17 at 16:33; Status DC Sodium Chloride (NS Flush) 2 ml UNSCH PRN IV FLUSH FLUSH AFTER USING IV ACCESS ; Start 06/03/17 at 06:30; Stop 06/04/17 at 16:33; Status DC Aspirin (Aspirin Chew) 81 mg DAILY CHEW Last administered on 06/04/17at 08:52; Start 06/04/17 at 09:00; Stop 06/04/17 at 16:33; Status DC Atorvastatin Calcium (Lipitor) 40 mg HS PO Last administered on 06/03/17at 20:44 ; Start 06/03/17 at 21:00; Stop 06/04/17 at 16:33; Status DC Folic Acid (Folate) 1 mg DAILY PO Last administered on 06/04/17at 08:52; Start 06/04/17 at 09:00; Stop 06/04/17 at 16:33; Status DC Thiamine HCl (Vitamin B1) 100 mg DAILY PO Last administered on 06/04/17at 08:52 ; Start 06/04/17 at 09:00; Stop 06/04/17 at 16:33; Status DC Multivitamins (Theragran) 1 tab DAILY PO Last administered on 06/04/17at 08:52; Start 06/04/17 at 09:00; Stop 06/04/17 at 16:33; Status DC Albuterol Sulfate (Albuterol Neb) 2.5 mg Q4HR NEB PRN NEB SOB/wheezing; Start 06/03/17 at 09:30; Stop 06/04/17 at 16:33; Status DC Vital Signs / I&O Vital Signs Date Time Temp Pulse Resp B/P (MAP) Pulse Ox O2 Delivery O2 Flow Rate FiO2 06/04/17 15:05 75 06/04/17 11:56 98.0 71 18 138/76 (96) 94 06/04/17 08:15 56 06/04/17 08:00 97.7 56 18 135/71 (92) 98 06/04/17 03:59 97.9 59 18 135/83 (100) 96 06/04/17 03:37 51 06/04/17 00:07 51 18 119/74 (89) 96 06/04/17 00:00 56 06/03/17 21:30 98.8 90 18 156/76 (102) 96 06/03/17 19:59 65 I/O 06/03/17 06/03/17 06/03/17 06/04/17 06/04/17 06/04/17 07:00 15:00 23:00 07:00 15:00 23:00 Intake Total 1360 ml Output Total 350 ml Balance 1010 ml Intake Oral 360 ml IV Total 1000 ml Output Urine Total 350 ml # Voids 1 3 Physical Exam GENERAL: NAD, AAOx3 SKIN: Warm and dry. HEAD: Atraumatic. Normocephalic. EYES: Pupils equal and round. No scleral icterus. No injection or drainage. ENT: No nasal bleeding or discharge. Mucous membranes pink and moist. NECK: Trachea midline. No JVD. CARDIOVASCULAR: Regular rate and rhythm. RESPIRATORY: No accessory muscle use. Clear to auscultation. Breath sounds equal bilaterally. GASTROINTESTINAL: Abdomen soft, non-tender, nondistended. Hepatic and splenic margins not palpable. MUSCULOSKELETAL: Extremities without clubbing, cyanosis, or edema. No obvious deformities. NEUROLOGICAL: Awake and alert. No obvious cranial nerve deficits. Motor grossly within normal limits. Five out of 5 muscle strength in the arms and legs. Laboratory Laboratory Tests Test 06/04/17 10:37 Blood Urea Nitrogen 9 MG/DL Creatinine 1.01 MG/DL Random Glucose 84 MG/DL Calcium Level 9.1 MG/DL Sodium Level 141 MEQ/L Potassium Level 4.0 MEQ/L Chloride Level 105 MEQ/L Carbon Dioxide Level 30.9 MEQ/L Anion Gap 5 MEQ/L Estimat Glomerular Filtration Rate 103 ML/MIN Total Creatine Kinase 388 U/L Creatine Kinase MB 2.0 NG/ML Creatine Kinase MB % 0.5 % Troponin I LESS THAN 0.02 NG/ML Assessment and Plan Problem List: (1) Atypical chest pain ICD Codes: R07.89 - Other chest pain Status: Resolved (2) Cocaine abuse ICD Codes: F14.10 - Cocaine abuse, uncomplicated Status: Chronic (3) Tobacco abuse ICD Codes: Z72.0 - Tobacco use Status: Chronic Assessment and Plan 1) Atypical chest pain 2) Abnormal stress test Discussed extensively with the patient and his mother, his mother wants him to have a catheterization Patient is totally against having the catheterization, his mother admits that its his choice I explained the reasoning for cardiac catheterization, although my concern with non-compliance, but patient is adamant that he wants to go home and not to have the catheterization 3) Patient to be discharged home 4) Discussed why he needs to stop using cocaine with the patient and his mother SubramanianLes Collin PERRY Jun 04, 2017 17:45
== END 2017-06-04 16:33 | disposition home or self-care (01) ==
LOC: NEPE 03:35 → NEDA 06:32 → NEPHCDU 07:28
PROVIDERS: ADMIT Family Medicine; ATTEND Family Medicine
DX: R07.89 Other chest pain (principal); I10 Essential (primary) hypertension; E11.9 Type 2 diabetes mellitus without complications; R94.39 Abnormal result of other cardiovascular function study; I44.0 Atrioventricular block, first degree; R00.1 Bradycardia, unspecified; R94.31 Abnormal electrocardiogram [ECG] [EKG]; J44.9 Chronic obstructive pulmonary disease, unspecified; J45.909 Unspecified asthma, uncomplicated; M62.82 Rhabdomyolysis; R74.8 Abnormal levels of other serum enzymes; G93.40 Encephalopathy, unspecified; R51 Headache; F41.9 Anxiety disorder, unspecified; G40.909 Epilepsy, unspecified, not intractable, without status epilepticus; F79 Unspecified intellectual disabilities; F17.210 Nicotine dependence, cigarettes, uncomplicated; F12.90 Cannabis use, unspecified, uncomplicated; F14.10 Cocaine abuse, uncomplicated; Z98.2 Presence of cerebrospinal fluid drainage device; Z87.820 Personal history of traumatic brain injury; Z79.899 Other long term (current) drug therapy; Z79.82 Long term (current) use of aspirin; Z91.14 Patient's other noncompliance with medication regimen
CPT/HCPCS: 71045; 71275; 80048; 80053; 80307; 81001; 82550; 82552; 83735; 83880; 84484; 85025; 85379; 85610; 85730; 93005; 94640; 94664; 96360; 96361; 99285; G0378; J3480; J7120; Q9967

== ENCOUNTER 2017-08-27 08:44 | Emergency (ER) | END 2017-08-27 13:54 | disposition home or self-care (01) | DX: L02.211 Cutaneous abscess of abdominal wall (principal); B95.62 Methicillin resistant Staphylococcus aureus infection as the cause of diseases classified elsewhere; F79 Unspecified intellectual disabilities; J45.909 Unspecified asthma, uncomplicated; E11.9 Type 2 diabetes mellitus without complications; F41.9 Anxiety disorder, unspecified; F17.210 Nicotine dependence, cigarettes, uncomplicated; I10 Essential (primary) hypertension; Z91.14 Patient's other noncompliance with medication regimen; Z16.19 Resistance to other specified beta lactam antibiotics; Z16.11 Resistance to penicillins; Z98.2 Presence of cerebrospinal fluid drainage device; Z88.0 Allergy status to penicillin | CPT/HCPCS: 10160; 74177; 80053; 81001; 83605; 85025; 85610; 85730; 86403; 87070; 87186; 96360; 96361; 99284; J7030; Q9967 ==

== ENCOUNTER 2017-10-02 03:07 | Emergency (ER) | payer SELFPAY ==
[~2017-10-02] VITALS: Ht 185.4 cm; Wt 80.0 kg
[2017-10-02 03:11] VITALS: BP 129/72; PULSE 72; RESP 16; TEMP 98.6; O2SAT 96
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
--- NOTE | 2017-10-02 04:06 | RADRPT ---
EXAM DATE: 10/02/2017 3:49 AM EDT AGE/SEX: 32 years / Male INDICATIONS: Chest pain. CLINICAL DATA: This is the patient's initial encounter. Patient reports that signs and symptoms have been present for 1 day and indicates a pain score of 5/10. MEDICAL/SURGICAL HISTORY: Hypertension. Diabetes mellitus type II. Asthma . Shunt, Left uppe r arm. [place] [facility] [place]. . FINDINGS: PA and lateral views of the chest demonstrate the lungs to be symmetrically aerated without evidence of mass, infiltrate or effusion. The cardiomediastinal contours are unremarkable. Osseous structures are intact. Right-sided ventriculostomy catheter tubing is identified CONCLUSION: Unremarkable single view the chest Electronically signed by: Ton Siddiqui MD 10/02/2017 4:05 AM EDT
[2017-10-02] MEDS ORDERED: NAPR375T4 PO (04:10)
--- NOTE | 2017-10-02 19:37 | EKG ---
Date Performed: 10/02/2017 Time Performed: 03:17:11 PTAGE: 32 years EKG: Sinus rhythm WITH SINUS ARRHYTHMIA WITH FIRST DEGREE AV BLOCK VOLTAGE CRITERIA FOR LVH Early Reploarization with Notched waves ABNORMAL ECG PREVIOUS TRACING : 06/03/2017 10.10 When compared to prior EKG,patient is no longer bradycardic DOCTOR: Nova Troncoso Interpretating Date/Time 10/02/2017 19:36:14
== END 2017-10-02 08:54 | disposition home or self-care (01) ==
LOC: NEPC 03:07
DX: R07.89 Other chest pain (principal); I49.9 Cardiac arrhythmia, unspecified; I44.0 Atrioventricular block, first degree; R94.31 Abnormal electrocardiogram [ECG] [EKG]; J45.909 Unspecified asthma, uncomplicated; F41.9 Anxiety disorder, unspecified; E11.9 Type 2 diabetes mellitus without complications; I10 Essential (primary) hypertension; F17.200 Nicotine dependence, unspecified, uncomplicated; Z87.820 Personal history of traumatic brain injury; Z98.2 Presence of cerebrospinal fluid drainage device; Z86.69 Personal history of other diseases of the nervous system and sense organs; Z79.899 Other long term (current) drug therapy; Z79.51 Long term (current) use of inhaled steroids; Z88.0 Allergy status to penicillin; Z88.8 Allergy status to other drugs, medicaments and biological substances
CPT/HCPCS: 71046; 93005; 99284

== ENCOUNTER 2018-04-05 02:16 | Observation (INO) ==
[2018-04-05] MEDS ORDERED: Sodium Chlor 0.9% Inj 500 ML IV.SIG ONE (02:30)
[2018-04-05] MEDS ORDERED: Morphine Inj 4 MG/ML Vial IV.PUSH ONE (02:30)
[2018-04-05 02:53] LABS: Baso # (Auto) 0.1 th/mm3 (0.0-0.2); Eos # (Auto) 0.3 th/mm3 (0.0-0.4); Eos % (Auto) 4.1 % (0.0-4.0); Hematocrit 48.1 % (39.0-51.0); Hemoglobin 16.5 gm/dL (13.0-17.0); Lymph # (Auto) 1.9 th/mm3 (1.0-4.8); Lymph % (Auto) 29.2 % (9.0-44.0); Mean Corpuscular HGB Conc 34.2 % (32.0-36.0); Mean Corpuscular Hemoglobin 30.1 pg (27.0-34.0); Mean Corpuscular Volume 87.8 fL (80.0-100.0); Mean Platelet Volume 8.7 fL (7.0-11.0); Mono # (Auto) 0.4 th/mm3 (0.0-0.9); Mono % (Auto) 5.5 % (0.0-8.0); Neut % (Auto) 60.2 % (16.0-70.0); Platelet Count 285 th/mm3 (150-450); Red Blood Count 5.47 mil/mm3 (4.50-5.90); Red Cell Distribution Width 12.5 % (11.6-17.2); White Blood Count 6.6 th/mm3 (4.0-11.0)
--- NOTE | 2018-04-05 03:03 | XR ---
EXAM DATE: 04/05/2018 2:44 AM EST AGE/SEX: 33 years / Male INDICATIONS: Chest pain today. CLINICAL DATA: This is the patient's initial encounter. Patient reports that signs and symptoms have been present for 1 day and indicates a pain score of 7/10. MEDICAL/SURGICAL HISTORY: . Hypertension. Diabetes mellitus type II. Asthma . . Shunt. Left h umerus. COMPARISON: [facility] – [place], CHEST PA & LAT, 10/02/2017. . FINDINGS: A single AP view of the chest demonstrates the lungs to be symmetrically aerated without evidence of mass, infiltrate or effusion. The cardiomediastinal contours are unremarkable. Osseous structures a re intact. Ventriculostomy catheter overlies the right chest. CONCLUSION: The lungs are clear. Electronically signed by: Ton Siddiqui MD Board Certified Radiologist 04/05/2018 3:02 AM EST
[2018-04-05 03:18] LABS: Alkaline Phosphatase 71 U/L (45-117); Total Protein 8.4 g/dL (6.4-8.2)
[2018-04-05 03:34] LABS: Alanine Aminotransferase 23 U/L (12-78); Anion Gap 5 meq/L (5-15); Aspartate Aminotransferase 35 U/L (15-37); Blood Urea Nitrogen 10 mg/dL (7-18); Calcium 8.9 mg/dL (8.5-10.1); Carbon Dioxide 25.8 meq/L (21.0-32.0); Chloride 107 meq/L (98-107); Glomerular Filtration Rate Greater Than 89 mL/min (>89); Glucose,Random 92 mg/dL (74-106); Lipase 106 U/L (73-393); Sodium 138 meq/L (136-145)
[2018-04-05] MEDS ORDERED: Temazepam 15 MG Capsule PO PRN (05:01)
[2018-04-05] MEDS ORDERED: Morphine Inj 4 MG/ML Vial IV.PUSH PRN (05:01)
[2018-04-05] MEDS ORDERED: ALPRAZolam 0.25 MG Tablet PO PRN (05:01)
[2018-04-05] MEDS ORDERED: Acetaminophen 500 MG Tablet PO PRN (05:01)
[2018-04-05] MEDS ORDERED: Sod Chloride 0.9% Inj 1,000 ML IV.CONT SCH (05:15)
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
[2018-04-05 06:15] LABS: Creatine Kinase 561 U/L (39-308)
[2018-04-05 06:27] LABS: Creatine Kinase MB 5.7 ng/mL (0.5-3.6)
[2018-04-05 08:31] VITALS: RESP 18
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
[2018-04-05 14:22] VITALS: BP 131/75; PULSE 71; TEMP 97.8; O2SAT 97
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
[2018-04-05 15:23] LABS: Creatine Kinase 485 U/L (39-308)
--- NOTE | 2018-04-05 16:14 | P.PNADD ---
Addendum to Inpatient Note Reason for Addendum: Additional Documentation Additional information: patient signed AMA
--- NOTE | 2018-04-05 16:15 | P.AMA ---
AMA Note - Diagnosis (1) Chest pain, atypical AMA Statement: Patient Wiliam Porras has decided to leave the hospital against medical advice. This patient has the capacity to refuse care and understands the risks of leaving, including permanent disability and/or , and has had an opportunity to ask questions about his/her condition. The patient has been informed that he/she may return for care at any time, and follow up has been arranged/advised. Discharge Disposition: Against Medical Advice Patient Condition on Discharge: Fair
[2018-04-05] MEDS ORDERED: Divalproex 250 MG DR Tablet PO SCH (21:00)
--- NOTE | 2018-04-06 01:47 | ECG ---
Date Performed: 04/05/2018 Time Performed: 02:23:42 PTAGE: 33 years EKG: Sinus rhythm WITH MARKED SINUS ARRHYTHMIA VOLTAGE CRITERIA FOR LVH ABNORMAL ECG Since the PREVIOUS TRACING , no significant change noted DOCTOR: Les Subramanian Interpretating Date/Time 04/06/2018 01:45:08
--- NOTE | 2018-04-06 01:56 | ECG ---
Date Performed: 04/05/2018 Time Performed: 06:20:00 PTAGE: 33 years EKG: Sinus rhythm VOLTAGE CRITERIA FOR LVH NONSPECIFIC T-WAVE ABNORMALITY ABNORMAL ECG PREVIOUS TRACING : 10/02/2017 03.17 Since the previous tracing, no significant change noted DOCTOR: Les Subramanian Interpretating Date/Time 04/06/2018 01:55:05
== END 2018-04-05 14:51 | disposition left against medical advice (07) ==
LOC: NEPE 02:16 → NEDA 02:16 → HCIS 11:27
PROVIDERS: ADMIT Hospitalist; ATTEND Hospitalist
CPT/HCPCS: 71010; 71045; 80053; 80307; 82550; 82552; 83520; 83690; 83880; 84484; 85025; 93005; 99285; G0378; J7030; J7040